=== PATIENT | female | born 1940 | race Caucasian/White ===

== ENCOUNTER 2020-06-27 17:39 | Outpatient (CLI) | payer MEDICARE, OTHER, SELFPAY | END 2020-06-27 17:40 | disposition home or self-care (01) | LOC: ANHCOVIDVC 17:39 | PROVIDERS: PCP Internal Medicine | DX: Z23 Encounter for immunization (principal) | CPT/HCPCS: 0001A; 91300 ==

== ENCOUNTER 2020-07-18 17:10 | Outpatient (CLI) | payer MEDICARE, OTHER, SELFPAY | END 2020-07-18 17:11 | disposition home or self-care (01) | LOC: ANHCOVIDVC 17:10 | PROVIDERS: PCP Internal Medicine | DX: Z23 Encounter for immunization (principal) | CPT/HCPCS: 0002A; 91300 ==

== ENCOUNTER 2020-10-20 12:09 | Emergency (ER) | payer MEDICARE, OTHER, SELFPAY ==
--- NOTE | ~2020-10-20 | CT_ITS ---
EXAMINATION: CT brain wo con DATE: 10/20/2020 13:04 INDICATION: Status post fall. TECHNIQUE: Computed tomography (CT) of the head was performed without intravenous contrast. The dose- length product was 605.33 mGy-cm. Automated exposure control and iterative reconstruction technique w ere employed. COMPARISON: CT dated 07/31/2003 FINDINGS: Mild generalized atrophy. There are scattered moderate periventricular and subcortical whit e matter changes, most likely related to small vessel ischemic disease (microangiopathy). No ventricu lomegaly or midline shift. There is intracranial atherosclerosis. Orbits are symmetric. Basilar ciste rns are patent. Paranasal sinuses and mastoids are pneumatized. IMPRESSION: 1. No acute intracranial abnormality. 2: Chronic age-related findings. Reviewed, dictated and finalized at location A.
[2020-10-20 12:11] VITALS: BP 164/74; PULSE 82; RESP 16; TEMP 36.8; O2SAT 100
--- NOTE | 2020-10-20 12:36 | ED.FALL ---
HPI - Fall General Chief Complaint: Fall Stated Complaint: Fall, Head Injury Time Seen by Provider: 10/20/20 12:22 Source: patient, EMS and RN notes reviewed Mode of arrival: EMS Limitations: no limitations History of Present Illness HPI Narrative: Patient 79 years old white female history of MS going to restore on, double doors, tripped on the floor mat while trying to get through the second door. Landed backward, less than 1 cm occipital laceration, no active bleeding, no loss of consciousness, no neck pain or any other injuries. Unknown tetanus shot, Covid vaccination months ago. Patient denies any fever, chills, nausea, vomiting, headache, chest pain, shortness of breath, abdominal pain or back pain., Related Data Home Medications Medication Instructions Recorded Confirmed aspirin 81 mg tablet,delayed 81 mg PO DAILY 04/12/19 06/14/20 release carbamazepine 100 mg 100 mg PO Q12H 04/12/19 06/14/20 tablet,extended release,12 hr ergocalciferol (vitamin D2) 50,000 unit PO 04/12/19 06/14/20 unit tablet levetiracetam 500 mg tablet 500 mg PO Q12H 04/12/19 06/14/20 glatiramer 40 mg/mL subcutaneous 40 mg SUB-Q 3XW ml 04/13/19 06/14/20 syringe Allergies Allergy/AdvReac Type Severity Reaction Status Date / Time phenytoin Allergy Unknown Unknown Verified 06/14/20 13:02 Review of Systems Review of Systems: Narrative: CONSTITUTIONAL: Denies fever, chills, or sweats. EYES: Denies visual changes, redness, or discharge. ENT: Denies rhinorrhea, congestion, sore throat, or otalgia. CARDIOVASCULAR: Denies chest pain, palpitations, or edema. RESPIRATORY: Denies cough or dyspnea. GASTROINTESTINAL: Denies abdominal pain, nausea, vomiting, or diarrhea. GENITOURINARY: Denies dysuria or hematuria. SKIN: Denies rash or itching. MUSCULOSKELETAL: Denies back pain, joint pain, or myalgia. NEUROLOGIC: Denies headache, numbness, or weakness. PSYCHIATRIC: Denies anxiety or depression. [facility] Social History Social History Smoking status: Former smoker Smoking end date: 04/26/1966 Alcohol intake: current Exam Narrative: Exam Narrative: General appearance: Well-developed, well-nourished Skin: Normal color Head: Normocephalic, 4 mm superficial occipital laceration, no active bleeding. Eyes: Clear conjunctiva ENT: Oropharynx normal, ears normal, nose normal Neck: Supple, nontender Chest and respiratory: Airway patent, no respiratory distress, no accessory muscle use Heart: Regular rate/rhythm Abdomen: Soft, nontender, no organomegaly, quiet bowel sounds Vascular: Normal peripheral pulses, normal capillary refill. Musculoskeletal: Normal range of motion, nontender back Neurologic: Alert and oriented ?3, LEAD [employer] SERVICE REPRESENTATIVE is normal as tested, no gross motor deficit Course Course Emergency Course: Stable Vital Signs Vital signs: Vital Signs Temperature 36.8 C 10/20/20 12:11 Pulse Rate 82 10/20/20 12:11 Respiratory Rate 16 10/20/20 12:11 Blood Pressure 164/74 H 10/20/20 12:11 Pulse Oximetry 100 10/20/20 12:11 Temperature 36.8 C 10/20/20 12:11 Pulse Rate 82 10/20/20 12:11 Respiratory Rate 16 10/20/20 12:11 Blood Pressure 164/74 H 10/20/20 12:11 Pulse Oximetry 100 10/20/20 12:11 Procedures Laceration Laceration 1: Date: 10/20/20 Time: 14:09 Site: scalp Side (If applicable): left Description: linear and clean Depth: simple, single layer ====== Skin Level ====== Skin layer closed with: roman (1 staple) ====== Subcutaneous Layer ====== ====== Muscle Layer ====== ====== Tendon Layer ====== MDM -
[2020-10-20] MEDS: TETANUS,DIPHTHERIA,AC PERTUSSIS ADULT (0.5 ML) BOOSTRIX IM (12:43)
[2020-10-20 13:54] VITALS: BP 174/94; PULSE 77; RESP 16; O2SAT 99
[2020-10-20 14:45] VITALS: BP 176/78; PULSE 80; RESP 16; O2SAT 98
== END 2020-10-20 14:47 | disposition home or self-care (01) ==
PROVIDERS: Emergency Provider Emergency Medicine; PCP Internal Medicine
DX: S01.01XA Laceration without foreign body of scalp, initial encounter (principal); G35 Multiple sclerosis; Z87.891 Personal history of nicotine dependence; Z79.82 Long term (current) use of aspirin; Z23 Encounter for immunization; W18.09XA Striking against other object with subsequent fall, initial encounter
CPT/HCPCS: 12001; 70450; 90471; 90715; 99284

== ENCOUNTER 2020-10-29 13:43 | Emergency (ER) | payer MEDICARE, OTHER, SELFPAY ==
[2020-10-29 13:50] VITALS: BP 181/73; PULSE 87; RESP 16; TEMP 36.8; O2SAT 98
--- NOTE | 2020-10-29 13:59 | ED.WOUNDLAC ---
HPI - Wound/Laceration General Chief Complaint: Wound/Laceration Stated Complaint: remove staple Time Seen by Provider: 10/29/20 13:46 Source: patient Mode of arrival: ambulatory Limitations: no limitations History of Present Illness HPI narrative: 79-year-old female presents to [facility] to have staple removed. Patient reports that she had 1 staple placed to the left side of her scalp on October 20 at [place] emergency room. Patient denies erythema, swelling, warmth, headache, dizziness or blurred vision. Associated symptoms: none Related Data Home Medications Medication Instructions Recorded Confirmed aspirin 81 mg tablet,delayed 81 mg PO DAILY 04/12/19 06/14/20 release carbamazepine 100 mg 100 mg PO Q12H 04/12/19 06/14/20 tablet,extended release,12 hr ergocalciferol (vitamin D2) 50,000 unit PO 04/12/19 06/14/20 unit tablet levetiracetam 500 mg tablet 500 mg PO Q12H 04/12/19 06/14/20 glatiramer 40 mg/mL subcutaneous 40 mg SUB-Q 3XW ml 04/13/19 06/14/20 syringe Allergies Allergy/AdvReac Type Severity Reaction Status Date / Time phenytoin Allergy Unknown Unknown Verified 06/14/20 13:02 Review of Systems Constitutional: Constitutional: Denies chills, Denies fatigue, Denies fever(s) and Denies weakness ENT: Denies dizziness Cardiovascular: Cardiovascular: Denies chest pain Respiratory: Respiratory: Denies cough Gastrointestinal: Gastrointestinal: Denies abdominal pain, Denies diarrhea, Denies nausea and Denies vomiting Integumentary/Breasts: Comments: 1 staple to left side of scalp Neurologic: Denies dizziness PMFSH Past Medical History Medical History Cholecystectomy planned Surgical History Surgical History (Updated 10/29/20 @ 14:01 by Gwendolyn Atwood APRN) H/O section Social History Social History Smoking status: Former smoker Smoking end date: 04/26/1966 Alcohol intake: current Comments At time of signature, I agree with nursing past medical, surgical, social and family history. There is no relevant family history pertinent to the presenting complaint. Exam Const: General: no acute distress Nutritional Appearance: well nourished Orientation/consciousness: patient oriented x3 Neck: Neck: normal visual inspection Resp: Effort & Inspection: normal respiratory effort, not labored and not tachypneic Auscultation: clear to auscultation bilaterally Cardio: Rate: regular rate, not bradycardic and not tachycardic Rhythm: regular rhythm Skin: General skin exam: normal color Rashes: no rashes Other: 1 intact staple noted to left side of scalp. There is no surrounding erythema, purulent drainage, bruising, bleeding or signs of infection noted Neuro: General: patient oriented x3 and moves all extremities Extrem: General: normal to inspection Psych: Appearance: grossly normal Mental Status: mental status grossly normal Affect: normal affect Attitude: cooperative Course Vital Signs Vital signs: Vital Signs Temperature 36.8 C 10/29/20 13:50 Pulse Rate 87 10/29/20 13:50 Respiratory Rate 16 10/29/20 13:50 Blood Pressure 181/73 H 10/29/20 13:50 Pulse Oximetry 98 10/29/20 13:50 Temperature 36.8 C 10/29/20 13:50 Pulse Rate 87 10/29/20 13:50 Respiratory Rate 16 10/29/20 13:50 Blood Pressure 181/73 H 10/29/20 13:50 Pulse Oximetry 98 10/29/20 13:50 Procedures Other Procedure Procedure 1: Other Procedure: Staple removal --1 intact staple was removed from left side of scalp. There is no erythema, bruising or signs of infection noted. Patient tolerated staple removal well. MDM - Wound/Laceration MDM Narrative Medical decision making narrative: Patient agrees to monitor closely for signs and symptoms of infection. Patient agrees to follow-up with primary care provider as needed for continuation of care Diffe
== END 2020-10-29 14:19 | disposition home or self-care (01) ==
PROVIDERS: Emergency Provider Nurse Practitioner Family; PCP Internal Medicine
DX: S01.01XD Laceration without foreign body of scalp, subsequent encounter (principal); X58.XXXD Exposure to other specified factors, subsequent encounter; Z87.891 Personal history of nicotine dependence
CPT/HCPCS: 99211; G0463

== ENCOUNTER 2021-10-12 11:31 | Emergency (ER) | payer MEDICARE, OTHER, SELFPAY ==
[2021-10-12] VITALS (10 sets, daily range): BP systolic 154–195; BP diastolic 67–90; PULSE 74–91; RESP 16–20; TEMP 36.3–36.8; O2SAT 97–100
--- NOTE | ~2021-10-12 | CT_ITS ---
EXAMINATION: CT facial & cervical spine wo DATE: 10/12/2021 14:35 INDICATION: trauma TECHNIQUE: Computed tomography (CT) of the maxillofacial region and cervical spine was performed with out intravenous contrast. Automated exposure control and iterative reconstruction technique were empl oyed. The dose-length product was 120.99 mGy-cm. COMPARISON: None FINDINGS: CERVICAL: Vertebral Body Alignment: Intact. Craniocervical and atlantoaxial alignment: Moderate degenerative change. Alignment intact. Osseous structures/fracture: No evidence of a lytic or blastic process in the visualized spine. No e vidence of acute fracture. Cervical soft tissues: The paraspinal soft tissues planes are maintained. Degenerative changes: Degenerative changes, without severe neural foraminal or central canal narrowin g. FACE: Soft Tissues: Left frontal and left jaw contusions. Facial bones: Nondisplaced oblique fracture of the left mandibular body. Displaced fracture of the l eft mandibular condyle with left TMJ dislocation. Possible right TMJ subluxation. No lytic or blastic process. Eyes: The globes are intact. The soft tissue planes of the orbits are maintained. Bilateral lens re placements. Paranasal Sinuses: The visualized aerated spaces are clear. Foreign Bodies: No radiopaque foreign bodies. Other Findings: Periodontal disease. IMPRESSION: No acute fracture or traumatic malalignment in the cervical spine. Displaced left mandibular condyle fracture, with left TMJ dislocation. Nondisplaced oblique left mandibular body fracture. Possible rig ht TMJ subluxation. Reviewed, dictated and finalized at location K. IMPRESSION: No acute fracture or traumatic malalignment in the cervical spine. Displaced le ft mandibular condyle fracture, with left TMJ dislocation. Nondisplaced oblique left mandibular body fracture. Possible right TMJ subluxation.
--- NOTE | ~2021-10-12 | CT_ITS ---
EXAMINATION: CT brain wo con DATE: 10/12/2021 12:32 INDICATION: Syncopal episode, dizziness, weakness. Minor head injury, with laceration to the chin TECHNIQUE: Computed tomography (CT) of the head was performed without intravenous contrast. The mA wa s adjusted according to patient size. Iterative reconstruction technique was employed. Exam dose: 60 5.33 mGy-cm total exam DLP. COMPARISON: 10/20/2020 CT brain FINDINGS: There are bilateral vertebral artery calcifications. There is nonspecific prominent patchy diminished attenuation of the cerebral white matter, possibly due to chronic small vessel ischemic ch anges. No intracranial mass lesion or hemorrhage or cerebrovascular accident. No midline shift or mass effec t. No subdural or epidural hematoma. There is moderate cerebral and cerebellar volume loss. No fracture or interval bone destruction of the cranial vault. Bilateral hyperostosis frontalis interna. Included mastoid air cells and paranasal sinuses are well-developed and aerated. IMPRESSION: Nonspecific patchy diminished attenuation of the cerebral white matter, likely due to ch ronic small vessel ischemic changes Cerebral atherosclerosis Moderate cerebral and cerebellar volume loss No acute intracranial finding Reviewed, dictated and finalized at Location A. Reviewed, dictated and finalized at location A. IMPRESSION: Nonspecific patchy diminished attenuation of the cerebral white ma tter, likely due to chronic small vessel ischemic changes Cerebral atherosclerosis Moderate cerebral and cerebellar volume loss No acute intracranial finding
--- NOTE | 2021-10-12 11:41 | ECG_ITS ---
Measurements Intervals [place] Rate: 76 P: -12 MI: 176 QRS: 3 QRSD: 97 T: 48 QT: 398 QTc: 449 Interpretive Statements ECTOPIC ATRIAL RHYTHM POSSIBLE LEFT ATRIAL ENLARGEMENT [-0.1mV P WAVE IN V1/V2] NONSPECIFIC ST ABNORMALITY ABNORMAL ECG NO PREVIOUS ECG AVAILABLE FOR COMPARISON Electronically Signed On 10-12-2021 11:58:45 CDT by Hiro Guzman M.D.
[2021-10-12 12:07] LABS: Basophils Percent Auto 0.5 % (0.2-1.2); Eosinophils Percent Auto 0.5 % (0-4.4); Hematocrit 41.7 % (37.0-47.0); Hemoglobin 13.5 g/dL (12.0-15.0); Immature Granulocyte Absolute 0.02 K/mm3 (0.00-0.031); Immature Granulocyte Percent A 0.3 % (0-0.5); Lymphocytes Absolute Auto 1.09 K/mm3 (0.9-3.2); Lymphocytes Percent Auto 17.9 % (18.3-44.2); Mean Corpuscular HGB Conc 32.4 g/dl (32-36); Mean Corpuscular Hemoglobin 31.5 pg (26-34); Mean Corpuscular Volume 97.4 fl (80-100); Mean Platelet Volume 9.2 fl (7.4-10.4); Monocytes Absolute Auto 0.4 K/mm3 (0.1-0.6); Monocytes Percent Auto 6.6 % (2.6-8.5); Neutrophils Absolute Auto 4.5 K/mm3 (1.3-6.7); Neutrophils Percent Auto 74.2 % (45.5-73.1); Platelet Count Result 295 k/mm3 (150-375); Red Blood Count 4.28 M/mm3 (4.2-5.4); Red Cell Distribution Width 13.1 % (11.5-14.5); White Blood Count 6.1 K/mm3 (4.5-10.0)
[2021-10-12] MEDS: SODIUM CHLORIDE 0.9% IV 1,000 ML 999 ML IV CONT (12:19)
[2021-10-12 12:20] LABS: Alanine Aminotransferase 20 U/L (6-35); Albumin Level 4.5 g/dL (3.5-5.1); Alkaline Phosphatase 177 U/L (38-126); Anion Gap 8 mmol/L (8-16); Aspartate Amino Transferase 31 U/L (14-36); Bilirubin,Total 0.4 mg/dL (0.2-1.3); Blood Urea Nitrogen 12 mg/dL (7-17); Calcium 8.7 mg/dL (8.4-10.2); Carbon Dioxide 25 mmol/L (22-30); Chloride 96 mmol/L (98-107); Estimated CRCL calculation 40 ml/min; Estimated Glomerular Filt Rate > 60; Glucose 136 mg/dL (65-110); Potassium 3.9 mmol/L (3.4-5.0); Sodium 129 mmol/L (137-145)
[2021-10-12] MEDS: LIDO 1%/EPINEPHRINE 1:100,000 20 ML VIAL 3 ML INFILTRATE (12:48)
--- NOTE | 2021-10-12 13:00 | ED.GENADULT ---
HPI - General Adult General Chief complaint: Syncope Stated complaint: syncope, chin lac Time Seen by Provider: 10/12/21 11:59 History of Present Illness HPI narrative: Patient is a 80-year-old female who presents ER status post syncope. She was at [employer] seeing a car when she got hot. She then got lightheaded and lost consciousness. She struck her chin. Tetanus up-to-date. Reports she did not eat or drink this morning. No chest pain or chest pressure. No new leg numbness or weakness. Related Data Home Medications Medication Instructions Recorded Confirmed aspirin 81 mg tablet,delayed 81 mg PO DAILY 04/12/19 07/03/21 release (Adult Low Dose Aspirin) carbamazepine 100 mg 100 mg PO Q12H 04/12/19 07/03/21 tablet,extended release,12 hr (Tegretol XR) levetiracetam 500 mg tablet 500 mg PO Q12H 04/12/19 07/03/21 glatiramer 40 mg/mL subcutaneous 40 mg subcut 3XW 04/13/19 07/03/21 syringe (Copaxone) Allergies Allergy/AdvReac Type Severity Reaction Status Date / Time phenytoin Allergy Unknown Unknown Verified 07/03/21 12:36 Review of Systems Review of Systems: All systems reviewed & are unremarkable except as noted in HPI and below Constitutional: Constitutional: Denies chills, Reports fatigue and Denies fever(s) ENT: Denies dysphagia, Denies nasal congestion and Denies sore throat Cardiovascular: Cardiovascular: Denies chest pain and Denies radiating jaw, neck or arm pain Respiratory: Respiratory: Denies cough and Denies dyspnea Gastrointestinal: Gastrointestinal: Denies abdominal pain, Denies nausea and Denies vomiting Integumentary/Breasts: Comments: chin laceration Neurologic: Reports syncope, Denies headache(s), Denies focal weakness and Denies numbness [facility] Past Medical History Medical History (Updated 10/12/21 @ 18:01 by [place] Bravo MD) Cataract (lens) fragments in eye following cataract surgery, bilateral Cholecystectomy planned Essential (primary) hypertension Mixed hyperlipidemia MS (multiple sclerosis) Type 2 diabetes mellitus without complication Surgical History Surgical History H/O section Social History Social History Smoking end date: 04/26/1966 Alcohol intake: current Exam Narrative: GENERAL: Well-appearing, well-nourished, and in no acute distress. HEAD: Normocephalic, atraumatic. ENT: Mucous membranes moist. No fractured teeth. Normal-appearing posterior oropharynx. 2 similar laceration to the chin. Tender over the left jaw and TMJ. Patient is able to open mouth. The posterior aspect of the left lower jaw has a white area that could either be a post for her bridge or could potentially be bone. NECK: Supple. No midline tenderness of C-spine. Normal range of motion. CHEST: Clear to auscultation. No respiratory distress. HEART: Regular rate and rhythm. Normal peripheral pulses. ABDOMEN: Soft, nontender, nondistended. EXTREMITIES: Normal range of motion. No edema. SKIN: Warm, dry, no rash. NEURO: No focal deficits. Alert and oriented x3. PSYCH: Normal mood and affect. Course Course Emergency Course: Patient resting comfortably. She is received morphine for pain. We have discussed the case with Vital Signs Vital signs: Vital Signs Temperature 98.2 F 10/12/21 11:43 Pulse Rate 77 10/12/21 11:43 Respiratory Rate 20 10/12/21 11:43 Blood Pressure 162/67 H 10/12/21 11:43 Pulse Oximetry 98 10/12/21 11:43 Temperature 98.2 F 10/12/21 11:43 Pulse Rate 86 10/12/21 12:08 Respiratory Rate 20 10/12/21 11:43 Blood Pressure 154/77 H 10/12/21 12:08 Pulse Oximetry 98 10/12/21 11:43 Procedures Laceration Laceration 1: Date: 10/12/21 Time: 12:40 Site: face Size (cm): 2 Description: linear Depth: simple, single layer Local Anesthetic: lidocaine 1% an
[2021-10-12 14:02] LABS: Appearance Urine Clear (Clear); Bilirubin Urine Negative (Negative); Blood Urine Negative (Negative); Color Urine Yellow (Yellow); Glucose Urine UA Negative (Negative); Ketones Urine Trace mg/dL (Negative); Leukocyte Esterase Ur Negative LEU/UL (Negative); Nitrate Urine Negative (Negative); Protein Urine Negative (Negative); Specific Grav Ur 1.015 (1.001-1.035); Urobilinogen Urine 0.2 mg/dL (<2.0)
[2021-10-12 14:03] LABS: Add Urine Microscopic? NO
[2021-10-12] MEDS: MORPHINE SULFATE (*CRX) 4 MG/ML INJ IV PUSH (15:55)
== END 2021-10-12 18:35 | disposition home or self-care (01) ==
PROVIDERS: Emergency Medicine; Emergency Provider Emergency Medicine; PCP Internal Medicine
DX: R55 Syncope and collapse (principal); S02.612A Fracture of condylar process of left mandible, initial encounter for closed fracture; S02.602A Fracture of unspecified part of body of left mandible, initial encounter for closed fracture; S01.81XA Laceration without foreign body of other part of head, initial encounter; I10 Essential (primary) hypertension; E78.2 Mixed hyperlipidemia; G35 Multiple sclerosis; E11.9 Type 2 diabetes mellitus without complications; Z79.82 Long term (current) use of aspirin; Z87.891 Personal history of nicotine dependence; Z98.42 Cataract extraction status, left eye; Z98.41 Cataract extraction status, right eye; I67.2 Cerebral atherosclerosis; W22.8XXA Striking against or struck by other objects, initial encounter
CPT/HCPCS: 12011; 36415; 70450; 70486; 72125; 80053; 81003; 85025; 93005; 96361; 96374; 99284; J2270; J7030

== ENCOUNTER 2021-10-13 14:55 | Emergency (ER) | payer MEDICARE, OTHER, SELFPAY ==
--- NOTE | ~2021-10-13 | CT_ITS ---
EXAMINATION: CT soft tissue neck wo con DATE: 10/13/2021 16:44 INDICATION: Swelling, recent jaw fracture TECHNIQUE: Computed tomography (CT) of the neck was performed with 75 mL Omnipaque-350 intravenous co ntrast. The dose-length product was 226.18 mGy-cm. COMPARISON: 10/12/2021. FINDINGS: The thyroid gland is unremarkable. The submandibular and parotid glands are symmetric. Mild left cervical lymphadenopathy. Arch calcifications and aortic ectasia, otherwise the superior mediastinum is unremarkable. The airway is unremarkable. Parapharyngeal and pre-glottic fat planes are prese rved. Bilateral lens replacements. Slightly increased subcutaneous edema about the left side of the mandible. Visualized sinuses and mastoid air cells are well aerated. Left mandibular condylar and b alexandria fractures, with TMJ dislocation, unchanged. Persistent subluxation of the right TMJ. IMPRESSION: 1. Left mandibular condyle and body fractures, stable alignment. 2. No significant interval change. Reviewed, dictated and finalized at location K.
[2021-10-13 15:02] VITALS: BP 147/75; PULSE 104; RESP 16; TEMP 36.3; O2SAT 97
[2021-10-13 16:15] LABS: Basophils Percent Auto 0.2 % (0.2-1.2); Hematocrit 40.5 % (37.0-47.0); Hemoglobin 13.7 g/dL (12.0-15.0); Immature Granulocyte Absolute 0.07 K/mm3 (0.00-0.031); Immature Granulocyte Percent A 0.4 % (0-0.5); Lymphocytes Absolute Auto 0.66 K/mm3 (0.9-3.2); Lymphocytes Percent Auto 4.2 % (18.3-44.2); Mean Corpuscular HGB Conc 33.8 g/dl (32-36); Mean Corpuscular Hemoglobin 31.9 pg (26-34); Mean Corpuscular Volume 94.2 fl (80-100); Mean Platelet Volume 9.3 fl (7.4-10.4); Monocytes Absolute Auto 0.9 K/mm3 (0.1-0.6); Monocytes Percent Auto 5.7 % (2.6-8.5); Neutrophils Percent Auto 89.5 % (45.5-73.1); Platelet Count Result 269 k/mm3 (150-375); Red Cell Distribution Width 13.3 % (11.5-14.5); White Blood Count 15.7 K/mm3 (4.5-10.0)
[2021-10-13 16:25] LABS: Anion Gap 8 mmol/L (8-16); Blood Urea Nitrogen 15 mg/dL (7-17); Calcium 8.6 mg/dL (8.4-10.2); Carbon Dioxide 26 mmol/L (22-30); Chloride 96 mmol/L (98-107); Estimated CRCL calculation 35 ml/min; Estimated Glomerular Filt Rate > 60; Glucose 150 mg/dL (65-110); Potassium 3.9 mmol/L (3.4-5.0); Sodium 130 mmol/L (137-145)
--- NOTE | 2021-10-13 17:06 | ED.GENADULT ---
HPI - General Adult General Chief complaint: Unspecified Stated complaint: swallowing difficulty Time Seen by Provider: 10/13/21 15:52 History of Present Illness HPI narrative: 80-year-old female who was seen here yesterday after she had a fall, was found to have a jaw fracture, and at the time had been feeling well without any signs of airway issues, tolerating p.o., and had gone home with follow-up to plastic surgery at [facility] for future surgery. However since then, she has been having increased swelling in her jaw and throat, to the point where she is unable to eat or drink anything; anything she tries to swallow she will choke on. No difficulty with breathing or speaking. Related Data Home Medications Medication Instructions Recorded Confirmed aspirin 81 mg tablet,delayed 81 mg PO DAILY 04/12/19 07/03/21 release (Adult Low Dose Aspirin) carbamazepine 100 mg 100 mg PO Q12H 04/12/19 07/03/21 tablet,extended release,12 hr (Tegretol XR) levetiracetam 500 mg tablet 500 mg PO Q12H 04/12/19 07/03/21 glatiramer 40 mg/mL subcutaneous 40 mg subcut 3XW 04/13/19 07/03/21 syringe (Copaxone) Allergies Allergy/AdvReac Type Severity Reaction Status Date / Time phenytoin Allergy Unknown Unknown Verified 07/03/21 12:36 Review of Systems Review of Systems: CONST: No fever. HEENT: Jaw pain/swelling C/V: No chest pain RESP: No difficulty breathing GI: No abdominal pain : No dysuria. M/S: No joint pain. SKIN: Bruising/cut to chin NEURO: [No headache or focal numbness or weakness] PSYCH: [No depression] [facility] Past Medical History Medical History Cataract (lens) fragments in eye following cataract surgery, bilateral Cholecystectomy planned Essential (primary) hypertension Mixed hyperlipidemia MS (multiple sclerosis) Type 2 diabetes mellitus without complication Surgical History Surgical History H/O section Social History Social History Smoking end date: 04/26/1966 Alcohol intake: current Exam Narrative: EXAMINATION OF ORGAN SYSTEMS/BODY AREAS: Constitutional: Vital signs per nursing GENERAL:[No acute distress, non-toxic appearing.] HEAD: Swelling/tenderness to left jaw EYES: EOMI ENT: No stridor; some swelling around neck LUNGS: Nonlabored breathing. HEART: [Regular rate and rhythm] ABD: [Soft], [nontender to palpation] EXT: Normal range of motion SKIN: Repaired laceration to chin, c/d/i NEURO: [Alert and oriented x 3. No gross focal sensory or strength deficits.] PSYCH: Normal affect Course Vital Signs Vital signs: Vital Signs Temperature 97.4 F L 10/13/21 15:02 Pulse Rate 104 H 10/13/21 15:02 Respiratory Rate 16 10/13/21 15:02 Blood Pressure 147/75 H 10/13/21 15:02 Pulse Oximetry 97 10/13/21 15:02 Temperature 97.4 F L 10/13/21 15:02 Pulse Rate 104 H 10/13/21 15:02 Respiratory Rate 16 10/13/21 15:02 Blood Pressure 147/75 H 10/13/21 15:02 Pulse Oximetry 97 10/13/21 15:02 Medical Decision Making [facility] Narrative Medical decision making narrative: 80-year-old female presents with jaw fracture after fall yesterday, unable to tolerate p.o., vital stable, exam shows some swelling over the left jaw, however no difficulty with speaking, no stridor, I have low concern for airway compromise, I do feel that she would likely benefit from hospitalization at this time for IV hydration until the swelling improves enough for her to go to surgery. Discussed with Dr. Zhang at [facility] who is agreeable with this plan for her to be admitted here and then transferred either to clinic or to the OR for repair once swelling improves. Discussed with patient and her daughter at bedside who are also agreeable to this plan. Case will be discussed with the admitting hospitalist. Vital Signs Vital Signs: Vital Signs Temperatu
== END 2021-10-13 19:03 | disposition short-term general hospital (02) ==
PROVIDERS: Emergency Provider Emergency Medicine; PCP Internal Medicine
DX: S02.612A Fracture of condylar process of left mandible, initial encounter for closed fracture (principal); I10 Essential (primary) hypertension; E78.2 Mixed hyperlipidemia; G35 Multiple sclerosis; E11.9 Type 2 diabetes mellitus without complications; Z98.41 Cataract extraction status, right eye; Z98.42 Cataract extraction status, left eye; Z79.82 Long term (current) use of aspirin; Z87.891 Personal history of nicotine dependence; W19.XXXA Unspecified fall, initial encounter
CPT/HCPCS: 36415; 70490; 80048; 85025; 99285

== ENCOUNTER 2022-04-07 14:22 | Outpatient (CLI) | payer MEDICARE, OTHER, SELFPAY ==
[2022-04-07 19:20] LABS: Add Urine Microscopic? YES; Appearance Urine Cloudy (Clear); Bilirubin Urine Negative (Negative); Blood Urine Negative (Negative); Color Urine Yellow (Yellow); Glucose Urine UA Negative (Negative); Ketones Urine Trace mg/dL (Negative); Leukocyte Esterase Ur Trace LEU/UL (NEGATIVE); Nitrate Urine Negative (Negative); Protein Urine 1+ mg/dL (Negative); Specific Grav Ur 1.025 (1.001-1.035); Urobilinogen Urine 0.2 mg/dL (<2.0)
[2022-04-07 19:28] LABS: Bacteria Urine Trace /hpf; Calcium Oxalate Crystals Urine Many /hpf; Mucus Urine Rare /lpf; Squamous Epithelial Cell Urine Many /hpf (Few); WBC Urine >75 /hpf (0-3)
== END 2022-04-07 14:23 | disposition home or self-care (01) ==
LOC: ANHGOSHLAB 14:24
PROVIDERS: PCP Internal Medicine; Visit Provider Internal Medicine
DX: R31.0 Gross hematuria (principal)
CPT/HCPCS: 81001

== ENCOUNTER 2022-04-19 22:39 | Emergency (ER) | payer MEDICARE, OTHER, SELFPAY ==
--- NOTE | ~2022-04-19 | CT_ITS ---
EXAMINATION: CT brain wo con DATE: 04/20/2022 00:41 INDICATION: Head injury with bruising over the right eye following multiple falls over the last 2 day s. TECHNIQUE: Computed tomography (CT) of the head was performed without intravenous contrast. Sagittal and coronal reconstructions were performed. The mA was adjusted according to patient size. Iterative reconstruction technique was employed. The dose-length product was 605.33 mGy-cm. COMPARISON: head CT dated 10/12/2021 FINDINGS: No fracture. No acute intracranial hemorrhage, acute infarction or abnormal extra axial fluid collect ion. There is moderate scattered white matter hypoattenuation consistent with chronic small vessel is chemic disease. Symmetric prominence of the sulci consistent with mild age-appropriate diffuse cerebr al volume loss. Ventricles are normal and symmetric. No mass/mass effect. Changes of bilateral intrao cular lens replacement. The orbits, paranasal sinuses and mastoid air cells are normal. IMPRESSION: 1. No fracture or acute intracranial process. 2. Moderate scattered white matter hypoattenuation consistent with chronic small vessel ischemic dise ase. Reviewed, dictated and finalized at location A. T OFFICER IMPRESSION: 1. No fracture or acute intracranial process. 2. Moderate scattered white matter hypoattenuation consistent with chronic smal l vessel ischemic disease.
--- NOTE | ~2022-04-19 | XR_ITS ---
EXAMINATION: XR chest 2V DATE: 04/20/2022 00:54 INDICATION: Left-sided clavicle pain post fall TECHNIQUE: frontal and lateral views of the chest were obtained. COMPARISON: Chest radiograph dated 07/31/2003 FINDINGS: New airspace opacities in the right middle lobe. No pulmonary edema, pleural effusion or pneumothorax . The cardiomediastinal silhouette is normal. Likely cholecystectomy clips in right upper quadrant. T horacolumbar dextroscoliosis. Age-indeterminate lower thoracic compression fracture new since 2003. IMPRESSION: 1. Right middle lobe pneumonia or atelectasis. Dr. Gutierrez discussed these findings with Dr. Her at 11:45 AM. Reviewed, dictated and finalized at location A. ER MACHINE IMPRESSION: 1. Right middle lobe pneumonia or atelectasis. Dr. Gutierrez discussed these fin dings with Dr. Her at 11:45 AM.
[2022-04-19 22:36] VITALS: BP 173/64; PULSE 80; RESP 18; TEMP 37.1; O2SAT 96
--- NOTE | 2022-04-19 23:39 | ED.FALL ---
HPI - Fall General Chief Complaint: Fall Stated Complaint: FALL, COVID + Time Seen by Provider: 04/19/22 23:17 History of Present Illness HPI Narrative: 81-year-old female presented to the emergency department for evaluation after having multiple ground-level falls. Patient states she does have MS and typically walks with a walker and periodically does have increased falls. Patient states that on Wednesday she was diagnosed with COVID. Related Data Allergies Allergy/AdvReac Type Severity Reaction Status Date / Time phenytoin Allergy Unknown Unknown Verified 02/24/22 10:14 Review of Systems Review of Systems: CONSTITUTIONAL: See HPI EYES: Denies visual changes, redness, or discharge. ENT: Denies rhinorrhea, congestion, sore throat, or otalgia. CARDIOVASCULAR: Denies chest pain, palpitations, or edema. RESPIRATORY: Denies cough or dyspnea. GASTROINTESTINAL: Denies abdominal pain, nausea, vomiting, or diarrhea. GENITOURINARY: Denies dysuria or hematuria. SKIN: Denies rash or itching. MUSCULOSKELETAL: Denies back pain, joint pain, or myalgia. NEUROLOGIC: Denies headache, numbness, or weakness. [facility] Past Medical History Medical History (Updated 04/21/22 @ 00:00 by [facility]) Cataract (lens) fragments in eye following cataract surgery, bilateral Cholecystectomy planned Essential (primary) hypertension Mixed hyperlipidemia MS (multiple sclerosis) Osteoporosis Type 2 diabetes mellitus without complication Vitamin B12 deficiency Weight loss Surgical History Surgical History (Reviewed 04/07/22 @ 13:30 by Dorina Colbert [facility]) H/O section Social History Social History (Updated 04/07/22 @ 13:38 by Dorina Colbert [facility]) Smoking status: Never smoker Smoking end date: 04/26/1966 Alcohol intake: current Lack of Transportation: No Lack of Food: Never True Current Housing: I Have Housing Concerned About Future Housing: No Difficulty Paying Gas/Electric Bills: No Difficulty Paying for Meds: No Currently Unemployed: No Education: High School Diploma/GED Difficulty w/ Childcare or Family Care: No Exam Narrative: APPEARANCE: Well appearing, no pain, no distress, well-nourished. HEAD: normocephalic, atraumatic. EYES: PERRLA/EOMI, conjunctivae clear. NOSE: Normal no drainage EARS:TMS clear with good light reflex. THROAT: Pharynx clear, no exudate. NECK: Supple. No adenopathy, no masses. RESPIRATORY: Airway patent, respirations nonlabored. Clear to auscultation bilaterally, no rales, rhonchi, wheezing. CARDIOVASCULAR: Regular rate and rhythm without murmurs rubs or gallops. ABDOMINAL: Soft, nontender, nondistended, normal bowel sounds MUSCULOSKELETAL: Moves all extremities. Strength/ROM intact, No edema, No calf tenderness. NEURO: Alert. Cranial nerves II through XII intact. Grossly intact SKIN: Warm, dry. Normal Color Course Course Emergency Course: Imaging was negative for acute abnormalities. Patient does have a current diagnosis of COVID. Patient is afebrile with no leukocytosis. Patient's electrolytes are similar to her baseline. UA shows no significant evidence of urinary tract infection. Patient states she does feel stronger to go home and declined admission and declined to go into the jail portion of her assisted living. Vital Signs Vital signs: Vital Signs Temperature 98.7 F 04/19/22 22:36 Pulse Rate 80 04/19/22 22:36 Respiratory Rate 18 04/19/22 22:36 Blood Pressure 173/64 H 04/19/22 22:36 Pulse Oximetry 96 04/19/22 22:36 Oxygen Delivery Room Air 04/19/22 22:36 Temperature 98.7 F 04/19/22 22:36 Pulse Rate 80 04/19/22 22:36 Respiratory Rate 17 04/20/22 02:15 Blood Pressure 162/64 H 04/20/22 05:50 Pulse Oximetry 95 04/20/22 05:50 Oxygen Delivery Room Air 04/19/22 22:36 MDM - Fall Lab Data Attestation: I reviewed the patient's lab results. 04/19/22 23:45 04/19/22 23:45 Labs: La
[2022-04-19 23:41] VITALS: O2SAT 96
[2022-04-19 23:45] VITALS: O2SAT 97
[2022-04-19 23:59] LABS: Add Urine Microscopic? YES; Appearance Urine Clear (Clear); Bilirubin Urine Negative (Negative); Blood Urine 1+ (Negative); Color Urine Light Yellow (Yellow); Glucose Urine UA Negative (Negative); Ketones Urine Negative (Negative); Leukocyte Esterase Ur Negative LEU/UL (Negative); Nitrate Urine Negative (Negative); Protein Urine 1+ mg/dL (Negative); Specific Grav Ur >= 1.030 (1.001-1.035); Urobilinogen Urine 0.2 mg/dL (<2.0); pH Urine 5.5 (5.0-9.0)
[2022-04-20] VITALS (8 sets, daily range): BP systolic 158–162; BP diastolic 64–68; RESP 17; O2SAT 92–96
[2022-04-20] LABS: Mucus Urine Rare /lpf; Squamous Epithelial Cell Urine Rare /hpf (Few)
[2022-04-20 00:04] LABS: Alanine Aminotransferase 27 U/L (6-35); Albumin Level 4.1 g/dL (3.5-5.1); Alkaline Phosphatase 105 U/L (38-126); Anion Gap 6 mmol/L (8-16); Aspartate Amino Transferase 40 U/L (14-36); Bilirubin,Total 0.2 mg/dL (0.2-1.3); Blood Urea Nitrogen 13 mg/dL (7-17); Calcium 8.3 mg/dL (8.4-10.2); Carbon Dioxide 28 mmol/L (22-30); Chloride 98 mmol/L (98-107); Estimated Glomerular Filt Rate > 60; Glucose 131 mg/dL (65-110); Potassium 3.9 mmol/L (3.4-5.0); Sodium 132 mmol/L (137-145)
[2022-04-20 00:05] LABS: Basophils Percent Auto 0.5 % (0.2-1.2); Eosinophils Percent Auto 0.1 % (0-4.4); Hematocrit 34.7 % (37.0-47.0); Hemoglobin 11.6 g/dL (12.0-15.0); Immature Granulocyte Absolute 0.04 K/mm3 (0.00-0.031); Immature Granulocyte Percent A 0.5 % (0-0.5); Lymphocytes Absolute Auto 0.99 K/mm3 (0.9-3.2); Lymphocytes Percent Auto 11.6 % (18.3-44.2); Mean Corpuscular HGB Conc 33.4 g/dl (32-36); Mean Corpuscular Hemoglobin 33.7 pg (26-34); Mean Corpuscular Volume 100.9 fl (80-100); Mean Platelet Volume 9.3 fl (7.4-10.4); Monocytes Absolute Auto 0.7 K/mm3 (0.1-0.6); Monocytes Percent Auto 7.9 % (2.6-8.5); Neutrophils Absolute Auto 6.8 K/mm3 (1.3-6.7); Neutrophils Percent Auto 79.4 % (45.5-73.1); Platelet Count Result 213 k/mm3 (150-375); Red Blood Count 3.44 M/mm3 (4.2-5.4); Red Cell Distribution Width 13.3 % (11.5-14.5); White Blood Count 8.6 K/mm3 (4.5-10.0)
--- NOTE | 2022-04-20 02:37 | PC.NURSE ---
Patient requesting to get up out of bed and to sit in hallway. Patient informed she is covid + and is unable to sit in the hallway. Patient moved to recliner in room with bed alarm in place. Patient informed to use call light and to stay in her chair. Patient verbalized understanding, patient a/ox4.
--- NOTE | 2022-04-20 05:07 | PC.NURSE ---
Patient declined request for repeat VS.
--- NOTE | 2022-04-20 05:52 | PC.NURSE ---
EMS arrives to take patient back to her facility. Patient transferred with her chart and belongings.
== END 2022-04-20 05:52 ==
PROVIDERS: Emergency Provider Emergency Medicine; PCP Internal Medicine
DX: S09.90XA Unspecified injury of head, initial encounter (principal); U07.1 COVID-19; G35 Multiple sclerosis; I10 Essential (primary) hypertension; R29.6 Repeated falls; E78.2 Mixed hyperlipidemia; E11.9 Type 2 diabetes mellitus without complications; E53.8 Deficiency of other specified B group vitamins; M81.0 Age-related osteoporosis without current pathological fracture; H59.023 Cataract (lens) fragments in eye following cataract surgery, bilateral; Z87.891 Personal history of nicotine dependence; Z79.82 Long term (current) use of aspirin; W19.XXXA Unspecified fall, initial encounter
CPT/HCPCS: 36415; 70450; 71046; 80053; 81001; 85025; 99284

== ENCOUNTER 2022-06-30 14:10 | Outpatient (CLI) | payer MEDICARE, OTHER, SELFPAY ==
[2022-06-30 18:36] LABS: Basophils Percent Auto 0.7 % (0.2-1.2); Eosinophils Percent Auto 0.7 % (0-4.4); Hematocrit 38.6 % (37.0-47.0); Hemoglobin 12.6 g/dL (12.0-15.0); Immature Granulocyte Absolute 0.02 K/mm3 (0.00-0.031); Immature Granulocyte Percent A 0.4 % (0-0.5); Lymphocytes Absolute Auto 1.12 K/mm3 (0.9-3.2); Lymphocytes Percent Auto 20.5 % (18.3-44.2); Mean Corpuscular HGB Conc 32.6 g/dl (32-36); Mean Corpuscular Hemoglobin 31.3 pg (26-34); Mean Corpuscular Volume 95.8 fl (80-100); Mean Platelet Volume 9.4 fl (7.4-10.4); Monocytes Absolute Auto 0.4 K/mm3 (0.1-0.6); Monocytes Percent Auto 7.7 % (2.6-8.5); Neutrophils Absolute Auto 3.8 K/mm3 (1.3-6.7); Platelet Count Result 332 k/mm3 (150-375); Red Blood Count 4.03 M/mm3 (4.2-5.4); Red Cell Distribution Width 13.1 % (11.5-14.5); White Blood Count 5.5 K/mm3 (4.5-10.0)
[2022-06-30 19:32] LABS: Hemoglobin A1C 5.9 % (<5.7)
[2022-06-30 20:19] LABS: Alanine Aminotransferase 32 U/L (6-35); Albumin Level 4.6 g/dL (3.5-5.1); Alkaline Phosphatase 110 U/L (38-126); Anion Gap 8 mmol/L (8-16); Aspartate Amino Transferase 43 U/L (14-36); Bilirubin,Total 0.4 mg/dL (0.2-1.3); Blood Urea Nitrogen 13 mg/dL (7-17); Calcium 9.2 mg/dL (8.4-10.2); Carbon Dioxide 28 mmol/L (22-30); Chloride 91 mmol/L (98-107); Estimated Glomerular Filt Rate > 60; Glucose 135 mg/dL (65-110); Potassium 4.4 mmol/L (3.4-5.0); Sodium 127 mmol/L (137-145)
== END 2022-06-30 14:11 | disposition home or self-care (01) ==
LOC: ANHGOSHLAB 14:13
PROVIDERS: PCP Internal Medicine; Visit Provider Internal Medicine
DX: E87.1 Hypo-osmolality and hyponatremia (principal); R41.3 Other amnesia; I10 Essential (primary) hypertension; R73.9 Hyperglycemia, unspecified
CPT/HCPCS: 36415; 80053; 83036; 85025

== ENCOUNTER → 2022-07-30 10:21 | Outpatient (CLI) | payer MEDICARE, OTHER, SELFPAY ==
--- NOTE | ~2022-07-30 | CT_ITS ---
EXAMINATION: CT abdomen pelvis wo/w con DATE: 07/30/2022 11:09 INDICATION: Hematuria. TECHNIQUE: Computed tomography (CT) of the abdomen and pelvis was performed without and with intraven ous contrast using a total of 130 mL Omnipaque-350 intravenous contrast with a double-bolus technique for simultaneous opacification of the renal parenchyma and renal collecting system. Automated exposu re control and iterative reconstruction technique were employed. The dose-length product was 537.24 m Gy-cm. COMPARISON: CT abdomen and pelvis 11/29/12, MRCP 11/23/17 FINDINGS: The visualized portions of the lung bases demonstrate mild atelectasis. There is bronchiectasis in ri ght middle lobe. No pleural effusion. There are coronary artery calcifications. The heart size is nor mal. No pericardial effusion. There is a small sliding hiatal hernia. There is mild intrahepatic bili brianna duct dilatation, likely secondary to cholecystectomy. There is a 1.7 cm calcification in the head of the pancreas. Pancreas divisum is noted. The pancreatic duct is dilated to 12 mm upstream from th is calcification. The adrenal glands are normal. The kidneys are normal. There is no urolithiasis. Th e ureters are incompletely opacified, but are normal. The bladder is not well distended. The endometr ial complex is thickened to 12 mm. There is a large volume of stool in the colon. There are no dilate d loops of bowel. There are no pathologically enlarged lymph nodes. There is no free intraperitoneal fluid. There is calcified atherosclerosis of the aorta and many of the other arteries. There is a maria luz ign bone island in L3 vertebral body. There are multiple chronic compression fractures in the spine. IMPRESSION: 1. Apparent thickening of the endometrial complex. The differential diagnosis includes endometrial hy perplasia, polyp, and carcinoma. Pelvis ultrasound is recommended. 2. No etiology for hematuria. Reviewed, dictated and finalized at location A. IMPRESSION: 1. Apparent thickening of the endometrial complex. The differential diagnosis i ncludes endometrial hyperplasia, polyp, and carcinoma. Pelvis ultrasound is rec ommended. 2. No etiology for hematuria.
[2022-07-30 10:47] LABS: Estimated Glomerular Filt Rate > 60
== END ==
PROVIDERS: PCP Internal Medicine; Visit Provider Internal Medicine
DX: R31.0 Gross hematuria (principal); R93.89 Abnormal findings on diagnostic imaging of other specified body structures
CPT/HCPCS: 74178; Q9967

== ENCOUNTER 2022-09-25 21:03 | Emergency (ER) | payer MEDICARE, OTHER, SELFPAY ==
--- NOTE | ~2022-09-25 | CT_ITS ---
CT head without contrast Indication: Trauma COMPARISON: 04/20/2022 Technique: Serial scans were obtained through the brain without the administration of contrast. Dose reduction technique was used on this scan by utilizing automated exposure control and iterative recon struction technique. The dose-length product (DLP) was 605.33 mGy-cm. Findings: There are small areas of acute subarachnoid hemorrhage versus possibly hemorrhagic contusio ns at the inferior aspect of the bilateral frontal lobes anteriorly. There is probable small acute bautista bdural hematoma at the adjacent falx cerebri at the anterior cranial fossa. The ventricles and subar achnoid spaces are dilated, consistent with mild atrophy. Low attenuation regions are seen within th e periventricular white matter bilaterally, likely representing changes from chronic microvascular is chemic disease. There is no evidence of edema, mass effect or midline shift. Fractures of the anterior and lateral martinez of the right maxillary sinus are present, with opacificat ion of the right maxillary sinus with blood products. Impression: Small amount of acute subarachnoid hemorrhage and/or hemorrhagic contusions at the bilateral frontal lobes at the anteroinferior aspect of the anterior cranial fossa. Probable small adjacent acute subdural hematoma at the anterior inferior falx cerebri. Fractures of the anterior and lateral martinez right maxillary sinus, with opacification of the right ma xillary sinus with blood products. Atrophy and chronic white matter changes, as above. Reviewed, dictated and finalized at [facility]. Impression: Small amount of acute subarachnoid hemorrhage and/or hemorrhagic contusions at the bilateral frontal lobes at the anteroinferior aspect of the anterior crania l fossa. Probable small adjacent acute subdural hematoma at the anterior inferior falx c erebri. Fractures of the anterior and lateral martinez right maxillary sinus, with opacifi cation of the right maxillary sinus with blood products. Atrophy and chronic white matter changes, as above.
--- NOTE | ~2022-09-25 | CT_ITS ---
CT Facial Bones and Cervical Spine Clinical Indication: Trauma Technique: Contiguous axial scans were obtained through the facial bones and cervical spine followed by coronal and sagittal reconstructions. Dose reduction technique was used on this scan by utilizing automated exposure control and iterative reconstruction technique. The dose-length product (DLP) was 122.60 mGy-cm. Findings: CT facial bones: There are multiple fractures involving the anterior, lateral and, posterior martinez of the right maxillary sinus, with additional minimally displaced fractures of the floor the right orbi t. There is a focal nondisplaced fracture at the lateral right orbital wall (coronal image 57). There are chronic appearing areas of lucency in the left angle the mandible region with sclerotic change a nd some chronic appearing periosteal thickening. There is extensive opacification of the right maxill brianna sinus with hyperdense blood products. No intraorbital abnormality seen. CT cervical spine: No fractures or subluxation. There is facet arthropathy, most prominent at C5-C6. . The intervertebral disc spaces are preserved. No prevertebral soft tissue swelling. Impression: Multiple acute fractures involving the right maxillary sinus (especially anterior and lateral martinez), as well as the floor and lateral wall of the right orbit. Opacification of right maxillary sinus with blood products. Chronic appearing areas of lucency with sclerosis involving the left angle of mandible region. 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 No fracture or subluxation of the cervical spine. Reviewed, dictated and finalized at [facility]. Impression: Multiple acute fractures involving the right maxillary sinus (especially anteri or and lateral martinez), as well as the floor and lateral wall of the right orbit . Opacification of right maxillary sinus with blood products. Chronic appearing areas of lucency with sclerosis involving the left angle of m andible region. 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 No fracture or subluxation of the cervical spine.
--- NOTE | ~2022-09-25 | XR_ITS ---
EXAMINATION: XR chest 1V DATE: 09/25/2022 23:33 INDICATION: Weakness. Falls. TECHNIQUE: A single frontal view of the chest was obtained. COMPARISON: Chest 2 views 04/20/2022, CT abdomen and pelvis 07/30/2022 FINDINGS: There is mild atelectasis versus scarring in the lower lung zones. No pleural effusion or p neumothorax. The heart size is normal. A right upper extremity peripherally inserted central venous c atheter (PICC) is seen with tip in the superior vena cava. Surgical clips in the right upper quadrant are likely from cholecystectomy. IMPRESSION: 1. Mild atelectasis versus scarring in the lower lung zones. Reviewed, dictated and finalized at location E.
[2022-09-25 21:04] VITALS: BP 182/73; PULSE 90; RESP 17; TEMP 36.9; O2SAT 94
--- NOTE | 2022-09-25 21:09 | ECG_ITS ---
Measurements Intervals [place] Rate: 86 P: 59 [place]: 175 QRS: 56 QRSD: 89 T: 25 QT: 352 QTc: 422 Interpretive Statements SINUS RHYTHM POSSIBLE LEFT ATRIAL ENLARGEMENT [-0.1mV P-WAVE IN V1/V2] COMPARED TO ECG 10/12/2021 11:46:40 SINUS RHYTHM NOW PRESENT Electronically Signed On 09-26-2022 9:39:58 CDT by Froy Sanabria M.D.
[2022-09-25 21:28] LABS: Basophils Percent Auto 0.5 % (0.2-1.2); Eosinophils Absolute Auto 0.1 K/mm3 (0-0.3); Eosinophils Percent Auto 1.3 % (0-4.4); Hematocrit 31.9 % (37.0-47.0); Hemoglobin 10.4 g/dL (12.0-15.0); Immature Granulocyte Absolute 0.03 K/mm3 (0.00-0.031); Immature Granulocyte Percent A 0.5 % (0-0.5); Lymphocytes Percent Auto 13.2 % (18.3-44.2); Mean Corpuscular HGB Conc 32.6 g/dl (32-36); Mean Corpuscular Hemoglobin 29.1 pg (26-34); Mean Corpuscular Volume 89.1 fl (80-100); Monocytes Absolute Auto 0.5 K/mm3 (0.1-0.6); Monocytes Percent Auto 8.9 % (2.6-8.5); Neutrophils Absolute Auto 4.6 K/mm3 (1.3-6.7); Neutrophils Percent Auto 75.6 % (45.5-73.1); Platelet Count Result 213 k/mm3 (150-375); Red Blood Count 3.58 M/mm3 (4.2-5.4); Red Cell Distribution Width 14.4 % (11.5-14.5); White Blood Count 6.1 K/mm3 (4.5-10.0)
[2022-09-25 21:42] LABS: Alanine Aminotransferase 29 U/L (6-35); Albumin Level 3.8 g/dL (3.5-5.1); Alkaline Phosphatase 69 U/L (38-126); Anion Gap 6 mmol/L (8-16); Aspartate Amino Transferase 33 U/L (14-36); Bilirubin,Total 0.2 mg/dL (0.2-1.3); Blood Urea Nitrogen 6 mg/dL (7-17); Calcium 8.2 mg/dL (8.4-10.2); Carbon Dioxide 30 mmol/L (22-30); Chloride 98 mmol/L (98-107); Estimated CRCL calculation 50 ml/min; Estimated Glomerular Filt Rate > 60; Glucose 175 mg/dL (65-110); Potassium 3.7 mmol/L (3.4-5.0); Sodium 134 mmol/L (137-145)
[2022-09-25] MEDS: SODIUM CHLORIDE 0.9% IV 1,000 ML 999 ML IV CONT (23:08)
[2022-09-25 23:22] LABS: Troponin I < 0.012 ng/mL (0.000-0.034)
[2022-09-25] MEDS: ACETAMINOPHEN 500 MG TABLET 1000 MG PO (23:57)
[2022-09-26 02:25] LABS: Appearance Urine Cloudy (Clear); Bacteria Urine None Seen /hpf; Bilirubin Urine Negative (Negative); Blood Urine Negative (Negative); Color Urine Yellow (Yellow); Glucose Urine UA Negative (Negative); Ketones Urine Negative (Negative); Leukocyte Esterase Ur Trace LEU/UL (Negative); Need Manual Microscopic Reviewed; Nitrate Urine Negative (Negative); Non Pathogenic Casts 0-2; Protein Urine Negative (Negative); Specific Grav Ur 1.007 (1.001-1.035); Squamous Epithelial Cell Urine None seen /hpf (Few); Urobilinogen Urine 0.2 mg/dL (<2.0); WBC Urine 0-5 /hpf; pH Urine 7.5 (5.0-9.0)
[2022-09-26 02:35] LABS: Add Urine Microscopic? YES
--- NOTE | 2022-09-26 03:00 | ED.GENADULT ---
HPI - General Adult General Chief complaint: Fall Stated complaint: falls Time Seen by Provider: 09/25/22 22:21 History of Present Illness HPI narrative: Patient 81-year-old female who presents the emergency department with chief complaint of head injury. Patient reports that she had several falls today where she lost her balance and struck her head. The patient reports she has significant bruising around her right orbit the patient reports no loss of consciousness but reports she has a little bit of a headache patient is not on any blood thinners but has had recent trauma where she had a mandible fracture and then was complicated with hardware infection has had her hardware removed the patient had this done at [place] the patient reports no nausea reports no focal neurological deficit reports she is up-to-date on her tetanus status and reports she has a small laceration on the face lateral to the eye patient reports no double vision no changes in her vision reports no episodes of entrapment Related Data Allergies Allergy/AdvReac Type Severity Reaction Status Date / Time phenytoin Allergy Unknown Unknown Verified 09/25/22 21:14 Review of Systems Review of Systems: A 10 system review of systems was completed on the patient and is negative except for what is stated in the HPI. Nursing and ancillary documentation was reviewed. [facility] Past Medical History Medical History Cataract (lens) fragments in eye following cataract surgery, bilateral Cholecystectomy planned Essential (primary) hypertension Malnutrition of mild degree Mixed hyperlipidemia MS (multiple sclerosis) Osteoporosis Type 2 diabetes mellitus without complication Vitamin B12 deficiency Weight loss Surgical History Surgical History H/O section Social History Social History Smoking status: Never smoker Smoking end date: 04/26/1966 Alcohol intake: current Lack of Transportation: No Lack of Food: Never True Current Housing: I Have Housing Concerned About Future Housing: No Difficulty Paying Gas/Electric Bills: No Difficulty Paying for Meds: No Currently Unemployed: No Education: High School Diploma/GED Difficulty w/ Childcare or Family Care: No Exam Narrative: GENERAL: Well-appearing, well-nourished, and in no acute distress. HEAD: Normocephalic, atraumatic. EYES: PERRLA and EOMI. there is bruising around the right orbit there is a small approximately 1 cm laceration lateral to the orbit on the right side there is no signs of entrapment ENT: Nares clear, no rhinorrhea or epistaxis. Mucous membranes moist. NECK: Supple. CHEST: Clear to auscultation. No respiratory distress. HEART: Regular rate and rhythm. No murmur heard. Normal peripheral pulses. ABDOMEN: Soft, nontender, nondistended, normal active bowel sounds. EXTREMITIES: Normal range of motion. No edema. SKIN: Warm, dry, no rash. NEURO: No focal deficits. Alert and oriented x3. PSYCH: Normal mood and affect. Course Vital Signs Vital signs: Vital Signs Temperature 36.9 C 09/25/22 21:04 Pulse Rate 90 09/25/22 21:04 Respiratory Rate 17 09/25/22 21:04 Blood Pressure 182/73 H 09/25/22 21:04 Pulse Oximetry 94 09/25/22 21:04 Oxygen Delivery Room Air 09/25/22 21:04 Temperature 36.9 C 09/25/22 21:04 Pulse Rate 90 09/25/22 21:04 Respiratory Rate 17 09/25/22 21:04 Blood Pressure 182/73 H 09/25/22 21:04 Pulse Oximetry 94 09/25/22 21:04 Oxygen Delivery Room Air 09/25/22 21:04 Medical Decision Making [facility] Narrative Medical decision making narrative: Differential diagnosis includes intracranial hemorrhage, facial fracture Laboratory studies were obtained on the patient which showed a normal CBC electrolytes are within normal limits
--- NOTE | 2022-09-26 03:56 | PC.NURSE ---
Called [facility] to inform of patient info and details of transfer. Shravan in ED states she needs no further information at this time .
[2022-09-26 04:19] VITALS: BP 173/72; PULSE 85; RESP 19; O2SAT 97
--- NOTE | 2022-09-26 05:52 | PC.NURSE ---
Transport arrived to transfer patient to [place] at this time
== END 2022-09-26 05:56 | disposition short-term general hospital (02) ==
PROVIDERS: Emergency Medicine; Emergency Provider Emergency Medicine; PCP Internal Medicine
DX: S06.6X0A Traumatic subarachnoid hemorrhage without loss of consciousness, initial encounter (principal); S06.5X0A Traumatic subdural hemorrhage without loss of consciousness, initial encounter; S02.40CA Maxillary fracture, right side, initial encounter for closed fracture; S02.31XA Fracture of orbital floor, right side, initial encounter for closed fracture; S02.841A Fracture of lateral orbital wall, right side, initial encounter for closed fracture; R29.6 Repeated falls; G35 Multiple sclerosis; I10 Essential (primary) hypertension; E11.9 Type 2 diabetes mellitus without complications; E78.2 Mixed hyperlipidemia; E53.8 Deficiency of other specified B group vitamins; H59.023 Cataract (lens) fragments in eye following cataract surgery, bilateral; M81.0 Age-related osteoporosis without current pathological fracture; R94.31 Abnormal electrocardiogram [ECG] [EKG]; Z79.82 Long term (current) use of aspirin; W18.39XA Other fall on same level, initial encounter
CPT/HCPCS: 36415; 70450; 70486; 71045; 72125; 80053; 81001; 83735; 84484; 85025; 93005; 96360; 99291; A9270; J7030

== ENCOUNTER 2022-10-03 18:02 | Emergency (ER) | payer MEDICARE, OTHER, SELFPAY ==
--- NOTE | ~2022-10-03 | CT_ITS ---
EXAMINATION: CT lumbar spine wo con DATE: 10/03/2022 20:06 INDICATION: Back pain after fall TECHNIQUE: Computed tomography (CT) of the lumbar spine was performed without intravenous contrast. T he dose-length product (DLP) was 270.33 mGy-cm. Iterative reconstruction was used. COMPARISON: 07/30/2022 FINDINGS: There are 5 mm of stable anterolisthesis of L4 on L5. Vertebral body alignment is otherwise maintained. There is a bone island in the L3 vertebral body. Compression fractures of the lower thor acic spine are unchanged. No lumbar spine fracture is identified. There is moderate loss of intervert ebral disc space height at L4-5. There is severe facet joint osteoarthritis of the lumbar spine. Ther e is a healed fracture of the left ninth rib. IMPRESSION: 1. Moderate lumbar spondylosis without acute findings. Reviewed, dictated and finalized at location F.
[2022-10-03 18:23] VITALS: BP 148/59; PULSE 74; RESP 18; TEMP 36.5; O2SAT 98
[2022-10-03 19:15] VITALS: BP 163/57; PULSE 77; RESP 16; O2SAT 97
--- NOTE | 2022-10-03 20:04 | PC.NURSE ---
Pt in CT at this time
[2022-10-03] MEDS: ONDANSETRON INJ 4 MG/2 ML VIAL IV PUSH (20:09)
[2022-10-03] MEDS: MORPHINE SULFATE (*CRX) 2 MG/ML INJ IV PUSH (20:09)
--- NOTE | 2022-10-03 20:36 | ED.FALL ---
HPI - Fall General Chief Complaint: Fall Stated Complaint: fall Time Seen by Provider: 10/03/22 19:34 Source: patient, family and EMS Mode of arrival: EMS History of Present Illness HPI Narrative: Patient is 81 years old white female was walking with her walker, left foot tach and the walker and fell backward landed on her bottom. Complaining of lower back pain. Denies head injury or other injuries. Patient had a fall twice on September 25 with head injury, intracranial hemorrhage, went to [facility] got discharged 4 days ago. Currently patient is awake, alert and oriented x4 denying any symptoms except lower back pain. 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 she denies any fever, chills, nausea, vomiting Related Data Allergies Allergy/AdvReac Type Severity Reaction Status Date / Time phenytoin Allergy Unknown Unknown Verified 10/03/22 19:17 Review of Systems Review of Systems: All systems reviewed & are unremarkable except as noted in HPI and below PMFSH Past Medical History Medical History Cataract (lens) fragments in eye following cataract surgery, bilateral Cholecystectomy planned Essential (primary) hypertension Malnutrition of mild degree Mixed hyperlipidemia MS (multiple sclerosis) Osteoporosis Type 2 diabetes mellitus without complication Vitamin B12 deficiency Weight loss Surgical History Surgical History H/O section Social History Social History Smoking status: Never smoker Smoking end date: 04/26/1966 Alcohol intake: current Lack of Transportation: No Lack of Food: Never True Current Housing: I Have Housing Concerned About Future Housing: No Difficulty Paying Gas/Electric Bills: No Difficulty Paying for Meds: No Currently Unemployed: No Education: High School Diploma/GED Difficulty w/ Childcare or Family Care: No Exam Narrative: General appearance: Well-developed, well-nourished Skin: Normal color Head: Normocephalic, nontraumatic Eyes: Clear conjunctiva ENT: Oropharynx normal, ears normal, nose normal Neck: Supple, nontender Chest and respiratory: Airway patent, no respiratory distress, no accessory muscle use Heart: Regular rate/rhythm Abdomen: Soft, nontender, no organomegaly, quiet bowel sounds Vascular: Normal peripheral pulses, normal capillary refill. Musculoskeletal: Normal range of motion, nontender back lower back exam showed no bruises, no swelling, no tenderness. Slight tenderness of the coccyx. Neurologic: Alert and oriented ?3, [employer]ELOPER is normal as tested, no gross motor deficit Course Reevaluation(s) Reevaluation #1: Feeling much better after IV morphine of 2 mg plus Zofran 4 mg. Patient was notified that CAT scan showed no acute abnormalities and glad to go home. Date: 10/03/22 Time: 20:42 Vital Signs Vital signs: Vital Signs Temperature 36.5 C 10/03/22 18:23 Pulse Rate 74 10/03/22 18:23 Respiratory Rate 18 10/03/22 18:23 Blood Pressure 148/59 H 10/03/22 18:23 Pulse Oximetry 98 10/03/22 18:23 Oxygen Delivery Room Air 10/03/22 18:23 Temperature 36.5 C 10/03/22 18:23 Pulse Rate 77 10/03/22 19:15 Respiratory Rate 16 10/03/22 19:15 Blood Pressure 163/57 H 10/03/22 19:15 Pulse Oximetry 97 10/03/22 19:15 Oxygen Delivery Room Air 10/03/22 18:23 MDM - Fall MDM Narrative Medical decision making narrative: Patient had a fall, landed on her bottom, denies any pain anywhere on her back except lower back and tailbone. No head injury.
[2022-10-03 21:35] VITALS: PULSE 75; RESP 18; O2SAT 98
== END 2022-10-03 21:56 ==
PROVIDERS: Emergency Provider Emergency Medicine; PCP Internal Medicine
DX: S30.0XXA Contusion of lower back and pelvis, initial encounter (principal); W01.0XXA Fall on same level from slipping, tripping and stumbling without subsequent striking against object, initial encounter; E11.9 Type 2 diabetes mellitus without complications; G35 Multiple sclerosis; I10 Essential (primary) hypertension; E78.2 Mixed hyperlipidemia; M81.0 Age-related osteoporosis without current pathological fracture; E53.8 Deficiency of other specified B group vitamins; E44.1 Mild protein-calorie malnutrition; Z79.82 Long term (current) use of aspirin
CPT/HCPCS: 72131; 96374; 96375; 99284; J2270; J2405

== ENCOUNTER 2022-10-06 05:49 | Emergency (ER) | payer MEDICARE, OTHER, SELFPAY ==
--- NOTE | ~2022-10-06 | XR_ITS ---
EXAMINATION: XR elbow LT min 3V DATE: 10/06/2022 08:01 INDICATION: Left elbow pain TECHNIQUE: Anteroposterior, two oblique and lateral views of the left elbow were obtained. COMPARISON: None. FINDINGS: Alignment is normal. No fracture or joint effusion. Joint spaces are normal. Soft tissues are unremarkable. IMPRESSION: 1. No acute osseous abnormality. Reviewed, dictated and finalized at location A.
--- NOTE | ~2022-10-06 | CT_ITS ---
EXAMINATION: CT brain wo con INDICATION: Head injury COMPARISON: 09/26/2022 TECHNIQUE: Standard unenhanced head CT. The dose-length product (DLP) was 605.33 mGy-cm. The mA was a djusted according to patient size. Iterative reconstruction technique was employed. FINDINGS: Subarachnoid hemorrhage in the left frontal lobe has nearly completely resolved. The previo usly described hemorrhagic contusions of the frontal lobes are no longer evident. No evidence of mass lesion. No evidence of acute infarction. 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 There is moderate periventricular and subcortical hypodensity probably related to small vessel ischemic disease. There is mild prominence of the sulci and ventricles related to cerebral atrophy. Intracranial calcified ce rebral atherosclerosis is noted. There are no extra-axial collections. There is no mass effect or mid line shift. The orbits and soft tissues are unremarkable. The visualized sinuses and mastoid air cell s are well aerated. Facial fractures described on the facial bone CT. IMPRESSION: 1. No acute intracranial abnormality. Near complete interval resolution of left frontal lobe subarach noid hemorrhage and resolution of the previously described hemorrhagic contusions of the frontal lobe s. 2. Age related findings. Reviewed, dictated and finalized at location A. IMPRESSION: 1. No acute intracranial abnormality. Near complete interval resolution of left frontal lobe subarachnoid hemorrhage and resolution of the previously describe d hemorrhagic contusions of the frontal lobes. 2. Age related findings.
--- NOTE | ~2022-10-06 | CT_ITS ---
EXAMINATION: CT facial & cervical spine wo DATE: 10/06/2022 07:10 INDICATION: Head injury TECHNIQUE: Computed tomography (CT) of the maxillofacial region and cervical spine was performed with out intravenous contrast. The dose-length product (DLP) was 123.22 mGy-cm. Automated exposure control and iterative reconstruction technique were employed. COMPARISON: 09/26/2022 FINDINGS: MAXILLOFACIAL CT: Again noted are comminuted fractures of the anterior, lateral, and posterior martinez of the right maxil delio sinus. There is a stable fracture in the inferior wall of the right orbit with herniation of a s mall volume of intraocular fat but no intraocular muscle entrapment. There is a an unchanged fracture in the lateral wall of the right orbit. There our stable nondisplaced fractures of the right zygomat ic arch. 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 No new facial fracture is identified. There is a small amount of persistent opacification of the right maxi llary sinus. 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 No new facial frac ture is identified. CERVICAL SPINE CT: Bone alignment is normal. There is no fracture. The vertebral body heights are maintained. There is m ild loss of intervertebral disc space height throughout the cervical spine. The odontoid process is i ntact. There is mild to moderate multilevel facet and uncovertebral joint osteoarthritis. IMPRESSION: 1. Right-sided facial fractures as detailed above without significant change since the comparison exa mination. No new facial fracture identified. 2. Mild cervical spondylosis without acute findings. 3. 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 Reviewed, dictated and finalized at location A. IMPRESSION: 1. Right-sided facial fractures as detailed above without significant change si nce the comparison examination. No new facial fracture identified. 2. Mild cervical spondylosis without acute findings. 3. 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
[2022-10-06 05:51] VITALS: BP 160/101; PULSE 84; RESP 14; TEMP 37; O2SAT 100
[2022-10-06 07:35] VITALS: PULSE 88; RESP 16; TEMP 36.6; O2SAT 97
[2022-10-06 08:00] VITALS: BP 142/88; PULSE 84; RESP 18; TEMP 36.3; O2SAT 98
--- NOTE | 2022-10-06 08:33 | ED.FALL ---
HPI - Fall General Chief Complaint: Fall Stated Complaint: FALL, HEAD PAIN Time Seen by Provider: 10/06/22 07:05 History of Present Illness HPI Narrative: Patient from nursing facility with history of frequent falls with head bleed and fractures presents here after she went to the bathroom, had disabled her bed alarm, and fell. She denies any pain anywhere other than mildly in her left elbow. Related Data Allergies Allergy/AdvReac Type Severity Reaction Status Date / Time phenytoin Allergy Unknown Unknown Verified 10/06/22 05:58 Review of Systems Review of Systems: CONST: No fever. HEENT: No head or neck pain C/V: No chest pain RESP: No trouble GI: No abdominal pain : No dysuria. M/S: Left elbow pain. SKIN: No rash. NEURO: [No headache or focal numbness or weakness] PSYCH: [No depression] [facility] Past Medical History Medical History Cataract (lens) fragments in eye following cataract surgery, bilateral Cholecystectomy planned Essential (primary) hypertension Malnutrition of mild degree Mixed hyperlipidemia MS (multiple sclerosis) Osteoporosis Type 2 diabetes mellitus without complication Vitamin B12 deficiency Weight loss Surgical History Surgical History H/O section Social History Social History Smoking status: Never smoker Smoking end date: 04/26/1966 Alcohol intake: current Lack of Transportation: No Lack of Food: Never True Current Housing: I Have Housing Concerned About Future Housing: No Difficulty Paying Gas/Electric Bills: No Difficulty Paying for Meds: No Currently Unemployed: No Education: High School Diploma/GED Difficulty w/ Childcare or Family Care: No Exam Narrative: EXAMINATION OF ORGAN SYSTEMS/BODY AREAS: Constitutional: Vital signs per nursing GENERAL:[No acute distress, non-toxic appearing.] HEAD: No obvious deformity EYES: EOMI, conjunctiva normal, right ecchymosis ENT: Hearing grossly intact LUNGS: Nonlabored breathing. HEART: [Regular rate and rhythm] ABD: [Soft], [nontender to palpation] EXT: Normal range of motion; mild tenderness to left elbow SKIN: Bruising right eye which appears old NEURO: [Alert, answering questions and following commands. No gross focal sensory or strength deficits.] PSYCH: Normal affect Course Vital Signs Vital signs: Vital Signs Temperature 98.6 F 10/06/22 05:51 Pulse Rate 84 10/06/22 05:51 Respiratory Rate 14 10/06/22 05:51 Blood Pressure 160/101 H 10/06/22 05:51 Pulse Oximetry 100 10/06/22 05:51 Oxygen Delivery Room Air 10/06/22 05:51 Temperature 97.8 F 10/06/22 07:35 Pulse Rate 88 10/06/22 07:35 Respiratory Rate 16 10/06/22 07:35 Blood Pressure 160/101 H 10/06/22 05:51 Pulse Oximetry 97 10/06/22 07:35 Oxygen Delivery Room Air 10/06/22 05:51 MDM - Fall MDM Narrative Medical decision making narrative: 1) Differential diagnosis: Fracture, intracranial hemorrhage 2) Comorbidities: Frequent falling, prior hemorrhage, osteoporosis 3) External notes reviewed: Multiple prior notes from PCP 4) History sources independently obtained from: Daughter at bedside 5) Discussion of management with: [] 6) Independent interpretation of: CT brain, elbow 7) Diagnostic tests or therapies considered but not ordered: [] 8) Social determinants of health: Dementia, fdc patient 9) Shared decision makin-year-old female presenting with fall, she has frequent falls, already has a bedside commode and bed alarm but she will disable him. Imaging obtained here to rule out acute fractures or other abnormalities, these are negative. Discussed with daughter and patient, they are already implementing fall precautions at her place of living. She can return for any further issues. Discharge Plan Discharge Clinical Impressi
[2022-10-06 08:50] VITALS: BP 138/88; PULSE 80; RESP 16; TEMP 36.6; O2SAT 97
== END 2022-10-06 09:12 ==
PROVIDERS: Emergency Provider Emergency Medicine; PCP Internal Medicine
DX: S59.902A Unspecified injury of left elbow, initial encounter (principal); R29.6 Repeated falls; G35 Multiple sclerosis; I10 Essential (primary) hypertension; E78.2 Mixed hyperlipidemia; E11.9 Type 2 diabetes mellitus without complications; E53.8 Deficiency of other specified B group vitamins; M81.0 Age-related osteoporosis without current pathological fracture; H59.023 Cataract (lens) fragments in eye following cataract surgery, bilateral; Z87.891 Personal history of nicotine dependence; Z79.82 Long term (current) use of aspirin; M47.812 Spondylosis without myelopathy or radiculopathy, cervical region; W06.XXXA Fall from bed, initial encounter
CPT/HCPCS: 70450; 70486; 72125; 73080; 99284

== ENCOUNTER 2023-06-21 14:40 | Outpatient (CLI) | payer MEDICARE, OTHER, SELFPAY ==
[2023-06-21 16:22] LABS: Basophils Absolute Auto 0.1 K/mm3 (0.0-0.1); Basophils Percent Auto 0.7 % (0.2-1.2); Eosinophils Absolute Auto 0.1 K/mm3 (0-0.3); Eosinophils Percent Auto 0.8 % (0-4.4); Hematocrit 38.8 % (37.0-47.0); Immature Granulocyte Absolute 0.02 K/mm3 (0.00-0.031); Immature Granulocyte Percent A 0.3 % (0-0.5); Lymphocytes Absolute Auto 1.63 K/mm3 (0.9-3.2); Lymphocytes Percent Auto 22.6 % (18.3-44.2); Mean Corpuscular HGB Conc 30.9 g/dl (32-36); Mean Corpuscular Hemoglobin 28.5 pg (26-34); Mean Corpuscular Volume 92.2 fl (80-100); Mean Platelet Volume 10.6 fl (7.4-10.4); Monocytes Absolute Auto 0.5 K/mm3 (0.1-0.6); Monocytes Percent Auto 6.9 % (2.6-8.5); Neutrophils Percent Auto 68.7 % (45.5-73.1); Platelet Count Result 313 k/mm3 (150-375); Red Blood Count 4.21 M/mm3 (4.2-5.4); Red Cell Distribution Width 13.9 % (11.5-14.5); White Blood Count 7.2 K/mm3 (4.5-10.0)
[2023-06-21 17:22] LABS: Alanine Aminotransferase 25 U/L (6-35); Albumin Level 4.4 g/dL (3.5-5.1); Alkaline Phosphatase 112 U/L (38-126); Anion Gap 10 mmol/L (8-16); Aspartate Amino Transferase 37 U/L (14-36); Bilirubin,Total 0.4 mg/dL (0.2-1.3); Blood Urea Nitrogen 10 mg/dL (7-17); Calcium 9.3 mg/dL (8.4-10.2); Carbon Dioxide 27 mmol/L (22-30); Chloride 102 mmol/L (98-107); Estimated Glomerular Filt Rate 60; Glucose 166 mg/dL (65-110); Potassium 4.1 mmol/L (3.4-5.0); Sodium 139 mmol/L (137-145)
[2023-06-21 17:52] LABS: Vitamin D 25 Hydroxy 37.8 ng/mL
[2023-06-21 18:08] LABS: Hemoglobin A1C 7.1 % (<5.7)
[2023-06-21 18:31] LABS: Vitamin B12 > 1000.0 pg/mL (239-931)
== END 2023-06-21 14:41 | disposition home or self-care (01) ==
LOC: ANHGOSHLAB 14:42
PROVIDERS: PCP Internal Medicine; Visit Provider Internal Medicine
DX: D64.9 Anemia, unspecified (principal); G35 Multiple sclerosis; I10 Essential (primary) hypertension; E11.9 Type 2 diabetes mellitus without complications; E53.8 Deficiency of other specified B group vitamins; E55.9 Vitamin D deficiency, unspecified
CPT/HCPCS: 36415; 80053; 82306; 82607; 82746; 83036; 85025

== ENCOUNTER 2023-12-20 14:26 | Outpatient (CLI) | payer MEDICARE, OTHER, SELFPAY ==
[2023-12-20 18:56] LABS: Basophils Absolute Auto 0.1 K/mm3 (0.0-0.1); Basophils Percent Auto 0.6 % (0.2-1.2); Eosinophils Absolute Auto 0.1 K/mm3 (0-0.3); Eosinophils Percent Auto 0.8 % (0-4.4); Hematocrit 39.3 % (37.0-47.0); Hemoglobin 12.2 g/dL (12.0-15.0); Immature Granulocyte Absolute 0.02 K/mm3 (0.00-0.031); Immature Granulocyte Percent A 0.3 % (0-0.5); Lymphocytes Absolute Auto 1.79 K/mm3 (0.9-3.2); Lymphocytes Percent Auto 22.9 % (18.3-44.2); Mean Corpuscular Hemoglobin 28.7 pg (26-34); Mean Corpuscular Volume 92.5 fl (80-100); Mean Platelet Volume 10.2 fl (7.4-10.4); Monocytes Absolute Auto 0.7 K/mm3 (0.1-0.6); Monocytes Percent Auto 8.3 % (2.6-8.5); Neutrophils Absolute Auto 5.3 K/mm3 (1.3-6.7); Neutrophils Percent Auto 67.1 % (45.5-73.1); Platelet Count Result 352 k/mm3 (150-375); Red Blood Count 4.25 M/mm3 (4.2-5.4); Red Cell Distribution Width 14.1 % (11.5-14.5); White Blood Count 7.8 K/mm3 (4.5-10.0)
[2023-12-20 19:18] LABS: Alanine Aminotransferase 23 U/L (6-35); Albumin Level 4.6 g/dL (3.5-5.1); Alkaline Phosphatase 105 U/L (38-126); Anion Gap 13 mmol/L (4-12); Aspartate Amino Transferase 33 U/L (14-36); Bilirubin,Total 0.3 mg/dL (0.2-1.3); Blood Urea Nitrogen 11 mg/dL (7-17); Calcium 9.1 mg/dL (8.4-10.2); Carbon Dioxide 27 mmol/L (22-30); Chloride 95 mmol/L (98-107); Cholesterol 186 mg/dL (0-200); Estimated Glomerular Filt Rate > 60; Glucose 128 mg/dL (65-110); HDL Direct 64 mg/dL; Potassium 4.4 mmol/L (3.4-5.0); Sodium 135 mmol/L (137-145); Triglycerides 68 mg/dL (<150)
[2023-12-20 19:30] LABS: LDL Cholesterol Direct 98 mg/dL
[2023-12-20 19:35] LABS: Hemoglobin A1C 6.8 % (<5.7)
[2023-12-20 19:37] LABS: Creatinine Urine 93.6 mg/dL
[2023-12-20 19:39] LABS: MALB Creatinine Ratio 73.5 mg/g (0-30); Microalbumin Urine Random 68.8 mg/L (0-16.7)
== END 2023-12-20 14:27 | disposition home or self-care (01) ==
LOC: ANHGOSHLAB 14:28
PROVIDERS: PCP Internal Medicine; Visit Provider Internal Medicine
DX: E11.9 Type 2 diabetes mellitus without complications (principal); G35 Multiple sclerosis; I10 Essential (primary) hypertension
CPT/HCPCS: 36415; 80053; 80061; 82043; 83036; 85025

== ENCOUNTER 2024-10-05 17:41 | Emergency (ER) | payer MEDICARE, OTHER, SELFPAY ==
--- NOTE | ~2024-10-05 | XR_ITS ---
XR chest 1V Ordering provider: Massiel Gamboa APRN History: 83 years Female with . ribcage injury s/p fall . Comparison: September 25, 2022 FINDINGS: MEDIASTINUM: The cardiac silhouette is moderately enlarged. LUNGS: No effusions or pneumothorax. Opacification in the left lung base medially. Underlying emphysematous changes. OTHER: No free air under the diaphragm. Degenerative changes of the spine with dextroscoliosis. IMPRESSION: Left basilar atelectasis versus pneumonia. Reviewed, dictated and finalized at location A.
--- NOTE | ~2024-10-05 | XR_ITS ---
XR shoulder LT min 2V Ordering provider: Massiel Gamboa APRN History: . L shoulder injury s/p fall . Comparison: None. FINDINGS: BONES: Fracture of the anatomical neck of the left humerus. Healing fracture of the left fifth rib. JOINT SPACES: The acromioclavicular joint shows mild osteoarthritic changes. The glenohumeral joint s hows severe narrowing. SOFT TISSUES: Normal. IMPRESSION: Fracture of the anatomical neck of the left humerus. Reviewed, dictated and finalized at location A.
--- NOTE | ~2024-10-05 | CT_ITS ---
CT cervical spine wo con Ordering provider: Massiel Gamboa APRN History: . neck injury s/p fall . Comparison: October 06, 2022. Technique: CT of the cervical spine was performed without contrast. Sagittal and coronal reformatted images were also obtained and reviewed. Automated exposure control and iterative reconstruction chrissy hnique were employed. The dose-length product was 91.13 mGy-cm. FINDINGS: VERTEBRAE: No subluxation or acute fracture. The occipital condyles are intact. DISC SPACES: Normal. Multilevel facet joint disease. PARASPINOUS SOFT TISSUES: Normal. IMPRESSION: No acute osseous abnormality cervical spine. Reviewed, dictated and finalized at location A.
--- NOTE | ~2024-10-05 | CT_ITS ---
CT brain wo con Ordering provider: Massiel Gamboa APRN History: 83 years Female with . head injury s/p fall . Comparison: October 06, 2022 Technique: CT of the head without contrast. Radiation reduction technique utilized.The dose-length product was 681 mGy-cm. FINDINGS: BRAIN PARENCHYMA AND CSF SPACES: Moderate leukoaraiosis and diffuse cortical atrophy. Moderate athero matous disease. 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 No midline shift, mass effect or hemor rhage. The brain parenchyma and CSF spaces are otherwise normal. VISUALIZED PARANASAL SINUSES: Well aerated. MASTOIDS: Well aerated. BONES: The bones appear intact. SOFT TISSUES: Visualized nasopharynx is normal. Superficial soft tissues are normal. IMPRESSION: No acute intracranial findings. Reviewed, dictated and finalized at location A.
[2024-10-05 17:40] VITALS: PULSE 69; RESP 13; O2SAT 96
--- NOTE | 2024-10-05 18:08 | ED.FALL ---
HPI - Fall General Chief Complaint: Fall Stated Complaint: fall History of Present Illness HPI Narrative: Patient is an 83-year-old female who presents to the ER following a fall at home. She reports she was in a new apartment and denies realize there was a step down. Patient reports she tripped and fell, hitting her left shoulder on the counter. She reports she fell to the ground and hit the back of her head on the floor. Patient denies loss of consciousness. She reports she is not on blood thinners. Patient endorses a history of high blood pressure and a seizure in 2002. She reports she has been on Keppra since 2002 but her neurologist called her the other day and told her to stop taking the Keppra. Patient is unsure why they decided to do this as she has not seen her neurologist recently. She reports she does not feel as though she has had any seizures since then. Patient denies any recent fevers, shortness of breath, confusion, altered mental status, or urinary symptoms. Related Data Home Medications ?Medication ?Instructions ?Recorded ?Confirmed ?Last Taken ?Type acetaminophen 500 mg tablet 1,000 mg PO Q6H PRN 11/17/22 06/19/24 Unknown History (Tylenol Extra Strength) Allergies Allergy/AdvReac Type Severity Reaction Status Date / Time phenytoin Allergy Unknown Unknown Verified 10/05/24 17:54 Review of Systems Review of Systems: All systems reviewed & are unremarkable except as noted in HPI and below PMFSH Past Medical History Medical History Malnutrition of mild degree Vitamin B12 deficiency Osteoporosis Weight loss Cataract (lens) fragments in eye following cataract surgery, bilateral Cholecystectomy planned Essential (primary) hypertension MS (multiple sclerosis) Mixed hyperlipidemia Type 2 diabetes mellitus without complication Surgical History Surgical History H/O section Social History Social History Smoking status: Never smoker Smoking end date: 04/26/1966 Alcohol intake: current Do You Feel Safe in your Home?: Yes Lack of Transportation: No Lack of Food: Never True Current Housing: I Have Housing Concerned About Future Housing: No Difficulty Paying Gas/Electric Bills: No Difficulty Paying for Meds: No Currently Unemployed: No Education: High School Diploma/GED Difficulty w/ Childcare or Family Care: No Exam Narrative: GENERAL: Well appearing, well-nourished, non-toxic, in no acute distress. HEAD: Normocephalic, atraumatic. NECK: Supple. No adenopathy, no masses. Left neck tenderness with palpation and movement. RESPIRATORY: Airway patent, respirations nonlabored. Clear to auscultation bilaterally, no rales, rhonchi, wheezing. CARDIOVASCULAR: Regular rate and rhythm without murmurs, rubs, or gallops. Peripheral pulses 2+ and equal bilaterally. ABDOMINAL: Soft, nontender, nondistended, no hepatosplenomegaly. Normoactive BS. MUSCULOSKELETAL: Moves all extremities. Strength/ROM intact. Significant swelling to left collarbone and left shoulder. Patient endorses pain with movement, palpation and manipulation. SKIN: Warm, dry, normal color. No rashes. NEURO: A&O X3. Speech clear. Cranial nerves II-XII intact. No ataxic movements. PSYCHIATRIC: Appropriate mood and affect. Normal interaction. Course Vital Signs Vital signs: Vital Signs Pulse Rate 69 10/05/24 17:40 Respiratory Rate 13 10/05/24 17:40 Pulse Oximetry 96 10/05/24 17:40 Oxygen Delivery Room Air 10/05/24 17:40 Pulse Rate 71 10/05/24 20:17 Respiratory Rate 15 10/05/24 20:17 Blood Pressure 153/64 H 10/05/24 20:17 Pulse Oximetry 96 10/05/24 20:17 Oxygen Delivery Room Air 10/05/24 17:40 MDM - Fall MDM Narrative Medical decision making narrative: Patient is an 83-year-old female who presents to the ER following a fall at home. She reports she was in a new apartment and denies realize there was a step down. Patient reports she tripped and fell, hitting her left shoulder on the counter. She reports she fell to the ground and hit the back of her head on the floor. Patient denies loss of consciousness. She reports she is not on blood thinners. Patient endorses a history of high blood pressure and a seizure in 2002. She reports she has been on Keppra since 2002 but her neurologist called her the other day and told her to stop taking the Keppra. Patient is unsure why they decided to do this as she has not seen her neurologist recently. She reports she does not feel as though she has had any seizures since then. Patient denies any recent fevers, shortness of breath, confusion, altered mental status, or urinary symptoms. Labs Ordered: None necessary Imaging Ordered: CT cervical spine, CT brain, left shoulder x-ray, chest x-ray Medications Ordered: Morphine 2mg IV, Broughton PO Results: Pt's L shoulder x-ray indicates Fracture of the anatomical neck of the left humerus. Her cervical CT indicates No acute osseous abnormality cervical spine. Pt's chest x-ray indicates Left basilar atelectasis versus pneumonia. Pt's CT head indicates No acute intracranial findings. Diagnosis: L humeral fracture Consults: orthopedic surgery (outpatient) Patient Education/Shared MDM: Although pt's chest x-ray indicates atelectasis versus pneumonia, pt reports she has not had any recent coughing, congestion, wheezing, nor fevers, so there is low concern for pneumonia. Results of imaging shared with patient. She endorses improvement of symptoms following medication administration. Pt will be placed in a sling and advised to follow up follow-up with orthopedic surgery as soon as possible. She will be discharged home with a prescription for Broughton. Pt should be very cautious to avoid falls while taking pain medication. Strict return precautions provided. Patient verbalized understanding and is in agreement with plan. Vital signs stable at time of discharge. All questions answered. Differential Diagnosis Differential diagnosis: Likely compression fracture, concussion without loss of consciousness and other (humeral fracture, fracture of clavicle, L shoulder strain) Imaging Data Attestation: I personally reviewed and interpreted this imaging study as follows: Radiologist's impression: Impressions Shoulder X-Ray 10/05/24 18:47 IMPRESSION: Fracture of the anatomical neck of the left humerus. Chest X-Ray 10/05/24 18:49 IMPRESSION: Left basilar atelectasis versus pneumonia. Head CT 10/05/24 19:05 IMPRESSION: No acute intracranial findings. Cervical Spine CT 10/05/24 20:07 IMPRESSION: No acute osseous abnormality cervical spine. Discharge Plan Discharge Clinical Impression: Fx humeral neck, Closed left humeral fracture Patient Disposition: Home Condition: Stable Instructions: Antibiotic Form, Proximal Humerus Fracture (ED) Additional Instructions: Please return to the ER with any worsening symptoms. Follow-up with Orthopedic surgery as soon as possible. Please call them tomorrow. Take all medications as prescribed, including regularly scheduled medications. You may take Broughton for pain control. Please be very cautious when taking narcotics to prevent any further falls. Keep your shoulder immobilizer on until you see orthopedic surgery. Patient Language: Nigerian Prescriptions: New hydrocodone-acetaminophen 5-325 mg tablet 1 tablet PO Q6H PRN (Reason: pain) Qty: 20 0RF No Action acetaminophen [Tylenol Extra Strength] 500 mg tablet 1,000 mg PO Q6H PRN mecobalamin (vitamin B12) 1,000 mcg tablet,chewable 1,000 mcg PO DAILY Qty: 90 3RF diltiazem HCl 360 mg capsule,extended release 24hr 360 mg PO DAILY Qty: 90 1RF telmisartan 80 mg tablet See Rx Instructions .ROUTE .COMPLEX Qty: 90 1RF Dose Instruction: TAKE ONE TABLET BY MOUTH DAILY Rx Instructions: TAKE ONE TABLET BY MOUTH DAILY Follow-up/Referrals: Navjot Fishman MD [Physician] - (orthopedic surgery) Jack Veliz DO [Primary Care Provider] - Time of Disposition: 21:03
--- NOTE | 2024-10-05 18:10 | PC.NURSE ---
Pt to radiology at this time.
[2024-10-05] MEDS: MORPHINE SULFATE (*CRX) 2 MG/ML INJ IV PUSH (19:11)
--- OUTSIDE RECORDS SUMMARY | 2024-10-05 19:21 | XMS_ITS | Clinical Summary ---
Author Organization [facility] Address [address] [place] [address] Care Team Providers Care Orchestra Musician Name Role Phone Jack Veliz DO Primary Care Provider [phone]- [phone] Allergies Active Allergy Reactions Criticality Noted Date Comments Phenytoin Medications diltiazem (TIAZAC) 360 mg 24 hr capsuleIndicati ons:hypertensio n Take 1 capsule (360 mg total) by mouth every morning Active telmisartan (MICARDIS) 80 mg tabletIndicatio ns:hypertension Take 1 tablet (80 mg total) by mouth every morning Active levETIRAcetam (KEPPRA) 500 mg tablet TAKE 2 TABLETS TWICE DAILY 360 tablet 1 1 Active Additional Information Patient taking differently: 500 mg oral 2 times daily, Informant: Self, Reported on 09/01/2022 cyanocobalamin (Vitamin B-12) 1,000 mcg tabletIndicatio ns:Prevention of Vitamin B12 Deficiency Take 1 tablet (1,000 mcg total) by mouth every morning 3 Active acetaminophen 500 mg capsuleIndicati ons:Pain Take 2 capsules (1,000 mg total) by mouth every 6 (six) hours 30 tablet 3 Active alendronate (FOSAMAX) 70 mg tablet 3 Active calcium carbonate-vitam in D3 (CALTRATE 600 + D) 1500 mg (600 mg elemental) -400 units per tablet 3 Active Active Problems Problem Noted Date Diagnosed Date Balance disorder 01/08/2023 Walker as ambulation aid 01/08/2023 Memory changes 01/08/2023 Intracranial hemorrhage 09/26/2022 Fall at retirement 09/26/2022 Osteomyelitis of mandible 09/02/2022 Overview (11/11/2022): h/o MS, diabetes, status post ORIF of left mandible in September 2021, presenting with recurrent jaw infection concerning for mandibular osteomyelitis. Patient with syncopal fall in September 2021 leading to fracture of left mandible; completed ORIF here with no initial concern for infection. Subsequently reports having swelling since March 2022, received various courses of antibiotics including penicillin, Augmentin, clindamycin but did not reported improving. Interim removal of third molar, as well as screw third molar site. Most recent CT sinus with interval healing of fractures, persistent erosion of left mandibular body/angle overlying at least 2 fixation screws, asymmetrically increased soft tissue edema concerning for sequela of ongoing or recurrent infection; presented for OR 09/02, status post removal of plating with no new hardware placed. OR cultures from 09/02 growing mixed oral gisele, no note of MRSA or resistant gram negative rods. Started on IV ceftriaxone/metronidazole/daptomycin on 09/02, Dapto stopped 09/05. Completed her IV antibiotics after the 6 weeks' course and pulled the PICC line. Since finishing the IV abx, she was given a course of oral Augmentin which she has been on since then. She was supposed to see us after the IV abx course but had another fall and was taken to hospital so had to reschedule ID appmt. She has tolerated Augmentin very well with no nausea/vomiting/diarrhea/abdominal pain. No new issues at all. 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 NO remaining hardware, hence doesn't need suppression. - recent labs WNL - Discussed importance of dental care, follow up with Plastics and dentistry and to call ID clinic with any future concerns/questions. Follow up PRN Assessment & Plan (09/05/2022 11:57 AM CDT): 81 y.o. female history of MS, diabetes, status post ORIF of left mandible in September 2021, presenting with recurrent jaw infection concerning for mandibular osteomyelitis. Patient with syncopal fall in September 2021 leading to fracture of left mandible; completed ORIF here with no initial concern for infection. Subsequently reports having swelling since March 2022, received various courses of antibiotics including penicillin, Augmentin, clindamycin but did not reported improving. Interim removal of third molar, as well as screw third molar site. Most recent CT sinus with interval healing of fractures, persistent erosion of left mandibular body/angle overlying at least 2 fixation screws, asymmetrically increased soft tissue edema concerning for sequela of ongoing or recurrent infection; presented for OR 09/02, status post removal of plating with no new hardware placed. OR cultures from 09/02 growing mixed oral gisele, no note of MRSA or resistant gram negative rods. Started on IV ceftriaxone/metronidazole/daptomycin on 09/02, Dapto stopped 09/05. Recs: -Can stop daptomycin, no need for further CK -Continue Ceftriaxone at 2g IV q24h -Switch metronidazole from IV to oral at 500mg PO TID -ID to signoff at this time, see summary of care document from today for final recommendations. Bilateral mandibular fracture, sequela 3 Frequent falls 01/02/2022 Gas pain 10/23/2021 Compression fracture of T3 vertebra 10/15/2021 Closed wedge compression fracture of T11 vertebr a 10/15/2021 Hyponatremia 10/15/2021 Hypophosphatemia 10/15/2021 Syncope 10/14/2021 Assessment & Plan (10/14/2021 2:11 AM CDT): Syncope with a prodrome of feeling hot and dizzy. No h/o previous heart issues but does endorse occasional palpitations. 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 No F/H of arrhythmias. - Obtain ECHO - Tele monitoring - US carotids Mandibular fracture 10/14/2021 Assessment & Plan (10/14/2021 2:14 AM CDT): CT face showed mildly displaced left mandibular angle and neck fracture and subluxation of left temporomandibular joint. - Plan for reduction by ENT (TBD) - On liquid diet only, avoid chewing until fracture reduction - Continue pain control with tylenol, tramadol and oxycodone. - Follow up ENT recs Leukocytosis 10/14/2021 Assessment & Plan (10/14/2021 2:28 AM CDT): WBC of 18k on admit with neutrophilia. - CXR without PNA. UA pending. Concern for cellulitis on chin but didn't have tenderness on my exam. Could be stress reaction as well. - Continue Augmentin and f/u CBC Fall 10/13/2021 Assessment & Plan (10/14/2021 2:16 AM CDT): Syncope leading to fall. Ambulates using walker at baseline. - Fall precautions - discussed with patient - PT/OT - Syncope workup as discussed else where Medication monitoring encounter 10/12/2021 Abnormal MRI 10/12/2021 Vitamin D deficiency 10/12/2021 Hypertension 02/17/2012 Assessment & Plan (10/14/2021 2:15 AM CDT): Continue home losartan & cardizem. Hold hctz since she appears volume down. Epilepsy 12/31/2006 Overview (08/05/2017): Description: Controlled on Keppra + Tegretol. Impression: No seizures in many years but do not recommend change in therapy and she tolerates these and it took a while to get the seizures under control. Continue Keppra and CBZ. Assessment & Plan (10/14/2021 2:18 AM CDT): Unclear if she had a seizure which led to fall but seems more like a syncopal episode based on history. Couldn't recall last known seizure but dates back to several years ago. - Continue home keppra + tegretol. Tegretol level within low normal range. Assessment & Plan (10/14/2017 12:05 PM CDT): She continues to be seizure free. She is tolerating Keppra and Tegretol without any issues. We will repeat labs at this time to monitor for AED side effects. She will continue Keppra 1000mg BID and Tegretol 300mg BID. Fatigue 11/20/2005 Overview (08/05/2017): Impression: Did not get much benefit from amantadine and is no longer taking this. Multiple sclerosis ([facility]) 11/20/2005 Overview (08/05/2017): Description: On Copaxone 40 mg TIW. 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 No change in my examination today vs. my examintion 02/2014. Assessment & Plan (10/14/2021 2:11 AM CDT): Follows with [facility] neurology and takes glatiramer. Assessment & Plan (10/14/2017 1:06 PM CDT): She continues to be clinically stable. She is tolerating Copaxone without any issues. She has not had an MRI done in a while, we will plan on obtaining follow up imaging before her next appointment with me in 9 months. She does not think she had any recent labs, given that she is on AEDs, I gave her orders for a CBC, CMP and I also provided an order for a vitamin D level. She will wait until she sees Dr. Majano to do the labs. Abnormality of gait and mobility 11/20/2005 Overview (08/05/2017): Description: Currently getting by with SPC but would be more stable with Rollator, which has been previously recommended. Impression: Needs SPC for ambulation. Unable to go to PT due to OOP costs. Urged caution and use of travel wheel chair when she goes on trips. Encounters Date Type Department Care Team Description 09/29/2024 Telephone [facility] Multiple Sclerosis [id number] [place] [id number] Aleida Dennis, MOMO 09/22/2024 Telephone [facility] Multiple Sclerosis [address] [place] [address] Gina Butterfield from Last 3 Months Immunizations Immunization Administration Dates Next Due Influenza, Quad, Adjuvantate d, Intramuscular 03/11/2021 Influenza, Quadrivalent, Hig h Dose, Preservative Free, Intrr 01/22/2020 Influenza, Trivalent, High D ose, Split, Preservative Free, Intramuscular 03/28/2019,02/14/2018,02/13/2018,02/10,02/10/2016 Influenza, Trivalent, IM (MDV) 02/06/2014,2012 Influenza, Trivalent, Preser vative Free, Intramuscular 02/10/2015,01/25/2012,11/25/2011 Influenza, Unspecified 02/10/2017,02/26/2012 Tdap 09/26/2022(Deferred: Patient Refused - pt states that she had one recently),10/20/2020 Surgical History Surgery Date Site/Laterality Comments AL CHOLECYSTECTOMY Cholecystectomy - (Added by TW Conv) SHOULDER SURGERY Shoulder Surgery - (Added by TW Conv) AL DELIVERY ONLY Section - (Added by TW Conv) Medical History Medical History Date Comments Personal history of other endocrine, nutritional and metabolic disease History of diabetes mellitus - (Added by TW Conv) Multiple sclerosis (HCC) Multipl e sclerosis - (Added by TW Conv) Personal history of other diseases of the circulatory system History of hypertension - (Added by TW Conv) Hypertension Dental disease Jaw fracture; curren t infection Family History Medical History Relation Name Comments Heart disease Mother Melody Escudero Hypertension Mother Melody Escudero Multiple sclerosis Mother's Brother Anesthesia problems Neg Hx Relation Name Status Comments Mother Melody Escudero Mother's Brother Other Alive Social History Tobacco Use Types Packs/Day Years Used Date Smoking Tobacco: Former Smokeless Tobacco: Never Tobacco Cessation:Counseling Given: Not Answered Alcohol Use Standard Drinks/Week Comments Yes 1 (1 standard drink = 0.6 oz pur e alcohol) AUDIT-C Answer Date Recorded Q1: How often do you have a drink containing alcohol? Never 11/04/2022 Q2: How many drinks containi ng alcohol do you have on a typical day when you are drinking? Patient does not drink Q3: How often do you have si x or more drinks on one occasion? Never 11/04/2022 Personal Safety Answer Date Recorded Have you ever been in or are you currently in a harmful physical or emotional relationship or is someone making you feel afraid or unsafe? 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 file Not on file Obstetrics History Last Filed Vital Signs Vital Sign Reading Time Taken Comments Blood Pressure 191/70 08/24/2023 11:27 AM CDT Pulse 60 08/24/2023 11:27 AM CDT Temperature 36.2 C (97.2 F) 01/11/2023 2:07 PM CDT Respiratory Rate 16 10/01/2022 4:33 AM CDT Oxygen Saturation 93% 10/01/2022 9:35 AM CDT Inhaled Oxygen Concentration - - Weight 42.6 kg (94 lb) 08/24/2023 11:27 AM CDT Height 160 cm (5' 3) 08/24/2023 11:27 AM CDT Body Mass Index 16.65 08/24/2023 11:27 AM CDT Plan of Treatment Health Maintenance Due Date Last Done Comments Depression Screening 1940 Osteoporosis Screening-Bone Density Scan 1940 Hepatitis B Screening 12/07/1959 Pneumococcal vaccine 65+ (1 of 1 - PCV) 12/07/1991 Zoster Vaccine (1 of 2) 12/07/1991 Well Visit 65+ 2006 Fall Risk Assessment 10/02/2023 10/01/2022 Covid-19 Vaccine (4 - 2023-2 5 season) 2023 02/19/2021, 07/18/2020, 06/27/2020 Influenza Vaccine (Season Ended) 2024 03/11/2021, 01/22/2020, 03/28/2019, Additional history exists DTaP/Tdap/Td Vaccine (2 - Td or Tdap) 10/20/2030 10/20/2020 Medical Devices Explanted Type Area Parts Designer Device Identifier Shelf Expiration Date Model / Serial / Lot Geovanny Craniomaxillofacial Leibinger [place] 2 Mmf 2mm 8mm Self Drill Cross Pin Ligature 50- - [id number] Explanted:Qty: 1 on 10/22/2021 at [facility] Left: Mandible Pioneer Craniomaxillofacial 50- / / Pioneer Craniomaxillofacial Leibinger [place] 2 2mm 12mm Self Drill Cross Pin Ligature Wire [id number] - [id number] Explanted:Qty: 4 on 10/22/2021 at [facility] Left: Mandible Pioneer Craniomaxillofacial [id number] / / Pioneer Craniomaxillofacial Smart Lock Leibinger [place] 2 [id number] Hole Mandible Mini [id number] - [id number] Implanted:Qty: 1 on 10/22/2021 by Leanna Parson MD at [facility] Explanted:Qty: 1 on 09/02/2022 at [facility] Left: Mandible [place]er Craniomaxillofacial [id number] / / Pioneer Craniomaxillofacial Leibinger [place] 2 2mm 5mm Self Tap Cross Pin Maxillofacial 50- - [id number] Implanted:Qty: 3 on 10/22/2021 by Leanna Parson MD at [facility] Explanted:Qty: 3 on 09/02/2022 at [facility] Left: Mandible Geovanny Craniomaxillofacial [id number] / / Geovanny Craniomaxillofacial Leibinger [place] 2 2.7mm 5mm Self Tap Cross Pin Maxillofacial [id number] - [id number] Implanted:Qty: 1 on 10/22/2021 by Leanna Parson MD at [facility] Explanted:Qty: 1 on 09/02/2022 at [facility] Left: Mandible Pioneer Craniomaxillofacial [id number] / / Plate Bone Recon Craniofacial 6 Hole W/[facility] - [id number] Implanted:Qty: 1 on 10/22/2021 by Leanna Parson MD at [facility] Explanted:Qty: 1 on 09/02/2022 at [facility] Left: Mandible Geovanny Craniomaxillofacial [id number] / / Pioneer Craniomaxillofacial Leibinger [place] 2 2.3mm 10mm Lock Cross Pin Maxillofacial [id number] - [id number] Implanted:Qty: 6 on 10/22/2021 by Leanna Parson MD at [facility] Explanted:Qty: 6 on 09/02/2022 at [facility] Left: Mandible Geovanny Craniomaxillofacial [id number] / / [place] [address] MEDICARE [facility] Address: [address] [address] [place] [address] [address] [place] [address] [place] [address] MEDICARE Advance Directives For more information, please contact: [phone] * Full Code (Latest Code Status on File) Date Activated Date Inactivated Comments 09/26/2022 12:15 PM 10/01/2022 5:38 PM * Full Code Date Activated Date Inactivated Comments 09/02/2022 3:38 PM 09/10/2022 3:32 PM * Full Code Date Activated Date Inactivated Comments 10/14/2021 1:26 AM 10/29/2021 8:28 PM Care Teams Orchestra Musician Relationship Specialty Start Date End Date Jack Veliz DO PCP - General Internal Medicine 02/26/22
--- OUTSIDE RECORDS SUMMARY | 2024-10-05 19:21 | XMS_ITS | Referral Summary ---
Author Organization [facility] Address [address] [place] [address] Care Team Providers Care Money Examiner Name Role Phone Jack Veliz DO Primary Care Provider [phone]- [phone] Encounters Date Type Department Care Team Description 09/29/2024 Telephone [facility] Multiple Sclerosis [address] [place] [address] Aleida Dennis, MOMO 09/22/2024 Telephone [facility] Multiple Sclerosis [address] [place] [address] Gina Butterfield from Last 3 Months Allergies Active Allergy Reactions Criticality Noted Date Comments Phenytoin Medications diltiazem (TIAZAC) 360 mg 24 hr capsuleIndicati ons:hypertensio n Take 1 capsule (360 mg total) by mouth every morning Active telmisartan (MICARDIS) 80 mg tabletIndicatio ns:hypertension Take 1 tablet (80 mg total) by mouth every morning Active levETIRAcetam (KEPPRA) 500 mg tablet TAKE 2 TABLETS TWICE DAILY 360 tablet 1 Active Additional Information Patient taking differently: [...] changes 01/08/2023 Intracranial hemorrhage 09/26/2022 Fall at longterm 09/26/2022 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 Multiple sclerosis ([facility]) 11/20/2005 Overview (08/05/2017): Description: On Copaxone 40 mg TIW. 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 No change in my examination today vs. my examintion 02/2014. Assessment & Plan (10/14/2021 2:11 AM CDT): Follows with [facility] neurology and takes glatiramer. Assessment & Plan [...] wheel chair when she goes on trips. Immunizations Immunization Administration Dates Next Due Influenza, Quad, Adjuvantate d, Intramuscular 03/11/2021 Influenza, Quadrivalent, Hig h Dose, Preservative Free, Intrr 01/22/2020 Influenza, Trivalent, High D ose, Split, Preservative Free, Intramuscular 03/28/2019,02/14/2018,02/13/2018,02/10,02/10/2016 Influenza, Trivalent, IM (MDV) 02/06/2014,2012 Influenza, Trivalent, Preser vative Free, Intramuscular 02/10/2015,01/25/2012,11/25/2011 Influenza, Unspecified 02/10/2017,02/26/2012 Tdap 09/26/2022(Deferred: Patient Refused - pt states that she had one recently),10/20/2020 Social History Tobacco Use Types Packs/Day Years [...] on file 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 Gender Identity Not on file Sexual Orientation Not on file 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 file Not on file Last Filed Vital Signs Vital Sign Reading [...] 08/24/2023 11:27 AM CDT Plan of Treatment Not on file Medical Devices Explanted Type Area Tufter Device Identifier Shelf Expiration Date Model / Serial / Lot [place] Craniomaxillofacial Leibinger [place] 2 Mmf 2mm 8mm Self Drill Cross Pin Ligature [id number] - [id number] Explanted:Qty: 1 on 10/22/2021 at [facility] Left: Mandible [place] Craniomaxillofacial [id number] / / [place] Craniomaxillofacial Leibinger [place] 2 2mm 12mm Self Drill Cross Pin Ligature Wire [id number] - [id number] Explanted:Qty: 4 on 10/22/2021 at [facility] Left: Mandible [place] Craniomaxillofacial [id number] / / Geovanny Craniomaxillofacial Smart Lock [place]inger [place] 2 [id number] 4 Hole Mandible Mini [id number] - [id number] Implanted:Qty: 1 on 10/22/2021 by Leanna Parson MD at [facility] Explanted:Qty: 1 on 09/02/2022 at [facility] Left: Mandible [place] Craniomaxillofacial [id number] / / Geovanny Craniomaxillofacial Leibinger [place] 2 2mm 5mm Self Tap Cross Pin Maxillofacial [id number] - [id number] Implanted:Qty: 3 on 10/22/2021 by Leanna Parson MD at [facility] Explanted:Qty: 3 on 09/02/2022 at [facility] Left: Mandible Geovanny Craniomaxillofacial 50 / / [place] Craniomaxillofacial Leibinger [place] 2 2.7mm 5mm Self Tap Cross Pin Maxillofacial [id number] - [id number] Implanted:Qty: 1 on 10/22/2021 by Leanna Parson MD at [facility] Explanted:Qty: 1 on 09/02/2022 at [facility] Left: Mandible [place] Craniomaxillofacial [id number] / / Plate Bone Recon Craniofacial 6 Hole W/[facility] [id number] Implanted:Qty: 1 on 10/22/2021 by Leanna Parson MD at [facility] Explanted:Qty: 1 on 09/02/2022 at [facility] Left: Mandible Geovanny Craniomaxillofacial 92- / / Geovanny Craniomaxillofacial Leibinger [place] 2 2.3mm 10mm Lock Cross Pin Maxillofacial [id number] - [id number] Implanted:Qty: 6 on 10/22/2021 by Leanna Parson MD at [facility] Explanted:Qty: 6 on 09/02/2022 at [facility] Left: Mandible [place] Craniomaxillofacial [id number] / / [place] [address] MEDICARE COMMERCIAL GENERIC MEDICARE COMMERCIAL GENERIC Member Subscriber Plan / Payer (Ef fective 2018-Present) Name:James Chapin Relation to Subscriber:Self Name:James Chapin Payer ID:[id number] Group ID:Not on file Type:[facility] [employer] Address: [address] [place] [address] [place] [address] MEDICARE COMMERCIAL GENERIC Member Subscriber Plan / Payer (Ef fective 2018-Present) Name:James Chapin Relation to Subscriber:Self Name:James Chapin Payer ID:[id number] Group ID:Not on file Type:[facility] Address: [address] [place] [address] [place] [address] MEDICARE Advance Directives For more information, please contact: [phone] * Full Code (Latest Code Status on File) Date Activated Date Inactivated Comments 09/26/2022 12:15 PM 10/01/2022 5:38 PM * Full Code Date Activated Date Inactivated Comments 09/02/2022 3:38 PM 09/10/2022 3:32 PM * Full Code Date Activated Date Inactivated Comments 10/14/2021 1:26 AM 10/29/2021 8:28 PM Care Teams Money Examiner Relationship Specialty Start Date End Date Jack Veliz DO PCP - General Internal Medicine 02/26/22
--- OUTSIDE RECORDS SUMMARY | 2024-10-05 19:21 | XMS_ITS | Clinical Summary ---
Author Organization [facility] Address [address] [place] [address] Care Team Providers Care Hospice Art Therapist Name Role Phone Jens Majano MD Primary Care Provider [phone] [facility],non-owned Affiliates and Associated Physician Practices is amultiple site organization consisting of ambulatory clinics and hospital sitesin [place], [place], [place] and [place]. This disclosure is being madepursuant to the Care Everywhere program and may not contain all information available regarding this patient. Last updated 18.[facility]yp Immunizations Immunization Administration Dates Next Due INFLUENZA VACCINE, HIGH-DOSE , QUADR. (FLUZONE HIGH-DOSE QUADRIVALENT; 65Y+), 0.7 ML (HD-IIV4) 02/10/2017 Social History Tobacco Use Types Packs/Day Years Used Date Smoking Tobacco: Never Assessed Comments Unknown Sex and Gender Information Value Date Recorded Sex Assigned at Not on file Legal Sex Female 2:33 PM CDT Gender Identity Not on file Sexual Orientation Not on file Plan of Treatment Health Maintenance Due Date Last Done Comments BONE DENSITY TESTING 1941 DTAP/TDAP/TD VACCINES (1 - Tdap) 1960 PNEUMOCOCCAL VACCINE 50+ (1 of 1 - PCV) 12/07/1991 ZOSTER VACCINE (1 of 2) 12/07/1991 Respiratory Syncytial Virus (RSV) Vaccine Pt: or over 60 yrs (1 - 1-dose 75+ series) 2016 COVID-19 VACCINE ( - 2023-2 5 season) 2023 DEPRESSION SCREENING 04/26/2024 INFLUENZA VACCINE (Season Ended) 2024 02/11/20 17 HEPATITIS B VACCINE Aged Out No longe r eligible based on patient's age to complete this topic HIB VACCINE Aged Out No longer eligi ble based on patient's age to complete this topic HPV VACCINE Aged Out No longer eligi ble based on patient's age to complete this topic MENINGOCOCCAL (Group B) VACC INE SHARED DECISION-MAKING Aged Out No longer eligibl e based on patient's age to complete this topic MENINGOCOCCAL GROUPS A/C/Y/W VACCINE Aged Out No longer eligible b ased on patient's age to complete this topic Insurance MEDICARE MEDICARE Care Teams Hospice Art Therapist Relationship Specialty Start Date End Date Jens Majano MD [address] [place] [id number] PCP - General Internal Medicine 02/10/17
--- OUTSIDE RECORDS SUMMARY | 2024-10-05 19:21 | XMS_ITS | Continuity of Care Document ---
Author Organization [facility] Address [address] [place] [address] [address] [place] [address] Phone Care Team Providers Care Retail Planner Name Role Phone Doisy, Edward Unavailable Unavailable Advance Directives Directive Yes / No Effective Date File Name No Information Encounters Encounter Description Practice Location Reason(s) For Visit Diagnoses Date Provider Providers Copied on Encounter [facility], [address], [place], [place], [id number], [place] tel:[phone] [facility] (formerly [facility]) No Information [address] Doisy Edward. [address] , [address], [place], [address], [place]. tel:[phone] Referring Provider: Tomás Valverde, [address] [place] [address], [address]. tel:[phone] Family History Family Member Type Diagnosis Age At Onset No Information Payers Payer name Insurance type Covered constitution party ID Authoriza tion(s) No Information Social [...]
[2024-10-05 20:17] VITALS: BP 153/64; PULSE 71; RESP 15; O2SAT 96
[2024-10-05] MEDS: HYDROcodone/acetaminophen (*CRX) 5-325 MG TABLET 1 TAB PO (21:25)
== END 2024-10-05 21:55 | disposition home or self-care (01) ==
PROVIDERS: Emergency Provider Registered Nurse; PCP Internal Medicine
DX: S42.292A Other displaced fracture of upper end of left humerus, initial encounter for closed fracture (principal); G35 Multiple sclerosis; I10 Essential (primary) hypertension; E53.8 Deficiency of other specified B group vitamins; E78.2 Mixed hyperlipidemia; E11.9 Type 2 diabetes mellitus without complications; M81.0 Age-related osteoporosis without current pathological fracture; H59.023 Cataract (lens) fragments in eye following cataract surgery, bilateral; Z87.891 Personal history of nicotine dependence; R91.8 Other nonspecific abnormal finding of lung field; W01.0XXA Fall on same level from slipping, tripping and stumbling without subsequent striking against object, initial encounter
CPT/HCPCS: 70450; 71045; 72125; 73030; 96374; 99284; A4565; A9270; J2270

== ENCOUNTER 2025-01-01 14:04 | Outpatient (CLI) | payer MEDICARE, OTHER, SELFPAY ==
--- OUTSIDE RECORDS SUMMARY | 2003-01-10 03:45 | XMS_ITS | Continuity of Care Document ---
Author Organization [facility] Address [id number] [place] [address] [address] [place] [address] Phone Care Team Providers Care Property Custodian Name Role Phone Doisy, Edward Unavailable Unavailable Advance Directives Directive Yes / No Effective Date File Name No Information Encounters Encounter Description Practice Location Reason(s) For Visit Diagnoses Date Provider Providers Copied on Encounter [facility], [address], [place], [place], [id number], [place] tel:[phone] No Information [address] Doisy Edward. [address] , [address], [place], [address], [place]. tel:[phone] Referring Provider: Tomás Valverde, [address] [place] [address], [address]. tel:[phone] Family History Family Member Type Diagnosis Age At Onset No Information Payers Payer name Insurance type Covered green party ID Authoriza tion(s) No Information Social History Type Description Quantity Date Captured Comments Sex Female Smoking Status No Information Chief Complaint And Reason For Visit No Information Reason For Referral Reason For Referral No Information History Of Present Illness Encounter Date Complaint History Of Prese nt Illness No Information Functional Status Date Functional Assessmen t No Information Instructions Date Instruction Additional Infor mation No Information Assessments Type Assessment Date No Information Patient Care Teams Name Effective Dates (start - stop) Status Members No Information
--- OUTSIDE RECORDS SUMMARY | 2025-01-01 14:08 | XMS_ITS | Clinical Summary ---
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 Multiple sclerosis ([facility]) 11/20/2005 Overview (08/05/2017): Description: On Copaxone 40 mg TIW. 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 No change in my examination today vs. my examintion 02/2014. Assessment & Plan (10/14/2021 2:11 AM CDT): Follows with [facility] neurology and takes glatiramer. Assessment & Plan [...] recently),10/20/2020 Surgical History Surgery Date Site/Laterality Comments [place] CHOLECYSTECTOMY Cholecystectomy - (Added by TW Conv) SHOULDER SURGERY Shoulder Surgery - (Added by TW Conv) [place] DELIVERY ONLY Section - (Added by TW [...] on file Legal Sex Female 7:58 PM KETTLE GIRL Gender Identity Not on file Sexual Orientation [...] Assessment 10/02/2023 10/01/2022 Covid-19 Vaccine (4 - 2024-2 6 season) 2024 02/19/2021, 07/18/2020, 06/27/2020 Influenza Vaccine (#1) 2024 , 01/22/2020, 03/28/2019, Additional history exists DTaP/Tdap/Td Vaccine (2 - Td or Tdap) 10/20/2030 10/20/2020 Medical Devices Explanted Type Area Case Packer And Sealer Device Identifier Shelf Expiration Date Model / Serial / Lot Lakeside Craniomaxillofacial Leibinger [place] 2 Mmf 2mm 8mm Self Drill Cross Pin Ligature [id number] - [id number] Explanted:Qty: 1 on 10/22/2021 at [facility] Left: Mandible Geovanny Craniomaxillofacial 50 / / Geovanny Craniomaxillofacial Leibinger [place] 2 2mm 12mm Self Drill Cross Pin Ligature Wire [id number] - [id number] Explanted:Qty: 4 on 10/22/2021 at [facility] Left: Mandible Geovanny Craniomaxillofacial [id number] / / Lakeside Craniomaxillofacial Smart Lock Leibinger [place] 2 [id number] 4 Hole Mandible Mini [id number] - [id number] Implanted:Qty: 1 on 10/22/2021 by Leanna Parson MD at [facility] Explanted:Qty: 1 on 09/02/2022 at [facility] Left: Mandible Geovanny Craniomaxillofacial [id number] / / Lakeside Craniomaxillofacial Leibinger [place] 2 2mm 5mm Self Tap Cross Pin Maxillofacial 50 - [id number] Implanted:Qty: 3 on 10/22/2021 by Leanna Parson MD at [facility] Explanted:Qty: 3 on 09/02/2022 at [facility] Left: Mandible Lakeside Craniomaxillofacial 50- / / Geovanny Craniomaxillofacial Leibinger [place] 2 2.7mm 5mm Self Tap Cross Pin Maxillofacial [id number] - [id number] Implanted:Qty: 1 on 10/22/2021 by Leanna Parson MD at [facility] Explanted:Qty: 1 on 09/02/2022 at [facility] Left: Mandible Geovanny Craniomaxillofacial [id number] / / Plate Bone Recon Craniofacial 6 Hole W/[facility] - [id number] Implanted:Qty: 1 on 10/22/2021 by Leanna Parson MD at [facility] Explanted:Qty: 1 on 09/02/2022 at [facility] Left: Mandible Lakeside Craniomaxillofacial 92 / / Geovanny Craniomaxillofacial Leibinger [place] 2 2.3mm 10mm Lock Cross Pin Maxillofacial [id number] - [id number] Implanted:Qty: 6 on 10/22/2021 by Leanna Parson MD at [facility] Explanted:Qty: 6 on 09/02/2022 at [facility] Left: Mandible Geovanny Craniomaxillofacial [id number] / / [place] [address] MEDICARE COMMERCIAL GENERIC Member Subscriber Plan / Payer (Ef fective 1977-) Name:More Chapin Relation to Subscriber:Self Name:TrentBrady burnettemary Kierra Payer ID:[id number] Group ID:Not on file Type:[facility] Address: [address] [place] [address] [place] [address] MEDICARE COMMERCIAL GENERIC MEDICARE COMMERCIAL [facility] Member Subscriber Plan / Payer (Ef fective 2018-Present) Name:More Chapin Relation to Subscriber:Self Name:More Chapin Payer ID:[id number] Group ID:Not on file Type:[facility] Address: [address] [place] [id number] [place] [address] [place] [phone] Advance Directives For more information, please contact: [phone] * Full Code (Latest Code Status on File) Date Activated Date Inactivated Comments 09/26/2022 12:15 PM 10/01/2022 5:38 PM * Full Code Date Activated Date Inactivated Comments 09/02/2022 3:38 PM 09/10/2022 3:32 PM * Full Code Date Activated Date Inactivated Comments 10/14/2021 1:26 AM 10/29/2021 8:28 PM Care Teams Blasting Contract Man Relationship Specialty Start Date End Date Jack Veliz, PCP - General Internal Medicine 02/26/22
--- OUTSIDE RECORDS SUMMARY | 2025-01-01 14:08 | XMS_ITS | Clinical Summary ---
Author Organization [facility] Address [address] [place] [address] Care Team Providers Care Analytical Tech Name Role Phone Jens Majano MD Primary Care Provider Source Comments [facility],non-owned Affiliates and Associated Physician Practices is amultiple site organization consisting of ambulatory clinics and hospital sitesin [place], [place], [place] and [place]. This disclosure is being madepursuant to the Care Everywhere program and may not contain all information available regarding this patient. Last updated 18.[facility] [employer] Immunizations Immunization Administration Dates Next Due INFLUENZA [...] yrs (1 - 1-dose 75+ series) 2016 DEPRESSION SCREENING 04/26/2024 COVID-19 VACCINE (1 - 2023-2 5 season) 2024 INFLUENZA VACCINE (#1) 2024 02/10/2017 HEPATITIS B VACCINE Aged Out No longe [...] this topic Insurance MEDICARE MEDICARE Care Teams Analytical Tech Relationship Specialty Start Date End Date Jens Majano MD [address] [place] [address] PCP - General Internal Medicine 02/10/17
[2025-01-01 18:33] LABS: Hematocrit 40.8 % (37.0-47.0); Hemoglobin 12.6 g/dL (12.0-15.0); Immature Granulocyte Percent A 0.4 % (0-0.5); Lymphocytes Absolute Auto 1.59 K/mm3 (0.9-3.2); Mean Corpuscular HGB Conc 30.9 g/dl (32-36); Mean Corpuscular Hemoglobin 28.8 pg (26-34); Mean Corpuscular Volume 93.4 fl (80-100); Nucleated Red Blood Cells Absolute Auto 0.000 K/mm3 (0.0-0.012); Nucleated Red Blood Cells Perc 0.0 % (0.0-0.2); Platelet Count Result 369 k/mm3 (150-375); Red Blood Count 4.37 M/mm3 (4.2-5.4); White Blood Count 10.0 K/mm3 (4.5-10.0)
[2025-01-01 18:49] LABS: Alanine Aminotransferase 28 U/L (6-35); Albumin Level 4.4 g/dL (3.5-5.1); Alkaline Phosphatase 133 U/L (38-126); Anion Gap 12 mmol/L (4-12); Aspartate Amino Transferase 43 U/L (14-36); Bilirubin,Total 0.4 mg/dL (0.2-1.3); Blood Urea Nitrogen 13 mg/dL (7-17); Calcium 9.3 mg/dL (8.4-10.2); Carbon Dioxide 28 mmol/L (22-30); Chloride 96 mmol/L (98-107); Estimated Glomerular Filt Rate > 60; Glucose 186 mg/dL (65-110); Sodium 136 mmol/L (137-145); Total Protein 7.8 g/dL (6.3-8.2)
[2025-01-01 18:57] LABS: Potassium 4.1 mmol/L (3.4-5.0)
[2025-01-01 19:25] LABS: Hemoglobin A1C 6.6 % (<5.7)
== END 2025-01-01 14:05 | disposition home or self-care (01) ==
LOC: ANHGOSHLAB 14:05
PROVIDERS: PCP Internal Medicine; Visit Provider Internal Medicine
DX: E11.9 Type 2 diabetes mellitus without complications (principal); I10 Essential (primary) hypertension; E44.1 Mild protein-calorie malnutrition
CPT/HCPCS: 36415; 80053; 83036; 85025